=== PATIENT | female | born 1940 | race Caucasian/White ===

== ENCOUNTER → 2017-04-05 | Outpatient (CLI) | payer MEDICARE, BC ==
--- NOTE | 2017-04-05 16:04 | BD ---
EXAMINATION TYPE: MG DEXA axial skeleton. DATE OF EXAM: 04/05/2017 COMPARISON: 07.20.2002 CLINICAL HISTORY: Z78.0 POST MENOPAUSAL Height: 54.3 Weight: 147 FRAX RISK QUESTIONS: Alcohol (3 or more units per day): NO Family History (Parent hip fracture): NO Glucocorticoids (More than 3mos): NO (Ex: prednisone, prednisolone, methylprednisolone, dexamethasone, and hydrocortisone). History of Fracture in Adulthood: YES Secondary Osteoporosis: NO 1. Type 1 Diabetes: NO 2. Hyperthyroidism: NO 3. Menopause before 45: NO 4. Malnutrition: NO 5. Chronic liver disease: NO Rheumatoid Arthritis: NO Current Tobacco Use: NO RISK FACTORS HISTORY OF: LT SHOULDER BROKEN AT AGE 46...WITH SURGICAL REPAIR When: 46 YRS OLD BOTH FEET BROKEN IN HER 60'S Family History of Osteoporosis: NO Active: YES Diet low in dairy products/other sources of calcium: NO Postmenopausal woman: AT AGE 52 Take estrogen and/or progesterone medications: IN PAST ONLY FOR 2-3 YRS Lost more than 2 inches in height since high school: NO Hyperparathyroidism: NO Adrenal Insufficiency: NO MEDICATIONS: Prednisone or other steroids: CORTIZON INJECTIONS How Long: PRN....LAST WAS 4 WKS AGO Additional Medications: ALEVE, BP MEDS, VIT D,STATINS FOR CHOLESTEROL Additional History: ARTHRITIS EXAM MEASUREMENTS: Bone mineral densitometry was performed using the [employer] System. Bone mineral density as measured about the Lumbar spine is: ----- L1-L4(G/cm2): 1.040 T Score Values are as follows: ----- L1: -1.4 ----- L2: -2.3 ----- L3: -0.9 ----- L4: -0.4 ----- L1-L4: -1.2 Bone mineral density has: Increased 4.4%jalen study of: 07.20.2002 Bone mineral density about the R hip (g/cm2): 0.787 Bone mineral density about the L hip (g/cm2): 0.749 T Score values are as follows: -----R Neck: -2.1 -----L Neck: -2.4 -----R Total: -1.7 -----L Total: -2.1 Bone mineral density has: Decreased -7.4% study of: 07.20.2002 FRAX%'S: THERE IS A 22.7% CHANCE OF A MAJOR OSTEOPOROTIC FX AND A 6.5% CHANCE FOR A HIP FX....PRO BABILITY IN 10/YRS TIME IMPRESSION: Osteopenia (T Score between -2.5 and -1 as noted by T score values There is slightly increased risk of fracture and the patient may be considered for treatment. Re-Screen 2-5 years FOR BOTH OF HER HIPS AND LUMBAR SPINE Bone density is improved 4.4% within the lumbar spine from 07/20/2002. Bone density is diminished 7.4% within the bilateral hips from 2001 NOTE: T-SCORE=SD OF THE YOUNG ADULT MEAN.
== END | disposition home or self-care (01) ==
LOC: RADBDWWP 12:28
PROVIDERS: ATTEND Family Medicine
DX: M85.80 Other specified disorders of bone density and structure, unspecified site (principal); Z78.0 Asymptomatic menopausal state
CPT/HCPCS: 77080

== ENCOUNTER → 2020-03-29 | Outpatient (CLI) | payer MEDICARE, BC ==
--- NOTE | 2020-03-29 18:51 | BD ---
EXAMINATION TYPE: Axial Bone Density DATE OF EXAM: 03/29/2020 COMPARISON: NONE CLINICAL HISTORY: Height: 65 Weight: 144.6 FRAX RISK QUESTIONS: Alcohol (3 or more units per day): NO Family History (Parent hip fracture): no Glucocorticoids (More than 3mos): no (Ex: prednisone, prednisolone, methylprednisolone, dexamethasone, and hydrocortisone). History of Fracture in Adulthood: yes Secondary Osteoporosis: 1. Type 1 Diabetes: no 2. Hyperthyroidism: no 3. Menopause before 45: no 4. Malnutrition: no 5. Chronic liver disease: no Rheumatoid Arthritis: no Current Tobacco Use: no RISK FACTORS HISTORY OF: Family History of Osteoporosis: yes Active: yes Diet low in dairy products/other sources of calcium: no Postmenopausal woman: age 52 MEDICATIONS: vitamins, bp meds, cholesterol meds Additional History: EXAM MEASUREMENTS: Bone mineral densitometry was performed using the [employer] System. Bone mineral density as measured about the Lumbar spine is: ----- L1-L4(G/cm2): 1.002 T Score Values are as follows: ----- L2: -2.1 ----- L3: -1.8 ----- L4: -0.3 ----- L1-L4: -2.6 Bone mineral density has: decreased -2.6 % since study of: 04.05.2017 Bone mineral density about the R hip (g/cm2): 0.725 Bone mineral density about the L hip (g/cm2): 0.695 T Score values are as follows: -----R Neck: -2.3 -----L Neck: -2.5 -----R Total: -1.8 -----L Total: -2.0 Bone mineral density has: decreased -0.5 % since study of: 04.05.2017 IMPRESSION: Osteoporosis (T Score less than -2.5). There is increased fracture risk and therapy is usually indicated based on age. Re-Screen 1-2 years. NOTE: T-SCORE=SD OF THE YOUNG ADULT MEAN.
== END ==
LOC: RADBDWWP 09:53
PROVIDERS: ATTEND Family Medicine
DX: M81.0 Age-related osteoporosis without current pathological fracture (principal); Z78.0 Asymptomatic menopausal state
CPT/HCPCS: 77080

== ENCOUNTER 2020-12-17 09:17 | Emergency (ER) | payer MEDICARE, BC ==
--- NOTE | 2020-12-17 10:19 | ED ---
General Adult HPI - General Chief complaint: Shortness of Breath Stated complaint: Covid+, IRLANDA Source: patient, RN notes reviewed, old records reviewed Mode of arrival: ambulatory Limitations: no limitations - History of Present Illness Initial comments: This is a 80-year-old female who states she was diagnosed with COVID 2 weeks ago. Patient states since then she has a low-grade fever every day and has been feeling very tired today she states she has a little chest soreness and mild shortness of breath. Patient denies any abdominal pain patient denies nausea vomiting. Patient states she does have some diarrhea.. Patient denies headache patient denies numbness weakness. Patient did not get any monoclonal antibodies. Patient denies any leg swelling or calf tenderness. - Related Data Previous Rx's Medication Instructions Recorded Dexamethasone [Decadron] 6 mg PO DAILY #7 tablet 12/17/20 Allergies Allergy/AdvReac Type Severity Reaction Status Date / Time azithromycin Allergy Rash/Hives Verified 12/17/20 09:23 [From Zithromax Z-Scott] propoxyphene [From Darvon] Allergy Vomiting Verified 12/17/20 09:23 Review of Systems ROS Statement: Those systems with pertinent positive or pertinent negative responses have been documented in the HPI. ROS Other: All systems not noted in ROS Statement are negative. Past Medical History Past Medical History: Hypertension Past Surgical History: Orthopedic Surgery Past Psychological History: No Psychological Hx Reported Smoking Status: Never smoker Past Alcohol Use History: None Reported Past Drug Use History: None Reported General Exam - General Exam Comments Initial Comments: GENERAL: Patient is well-developed and well-nourished. Patient is nontoxic and well- hydrated and is in mild distress. ENT: Neck is soft and supple. No significant lymphadenopathy is noted. Oropharynx is clear. Moist mucous membranes. Neck has full range of motion without eliciting any pain. EYES: The sclera were anicteric and conjunctiva were pink and moist. Extraocular movements were intact and pupils were equal round and reactive to light. Eyelids were unremarkable. PULMONARY: Unlabored respirations. Good breath sounds bilaterally. No audible rales rhonchi or wheezing was noted. CARDIOVASCULAR: There is a regular rate and rhythm without any murmurs gallops or rubs. ABDOMEN: Soft and nontender with normal bowel sounds. SKIN: Skin is clear with no lesions or rashes and otherwise unremarkable. NEUROLOGIC: Patient is alert and oriented x3. Cranial nerves II through XII are grossly intact. Motor and sensory are also intact. Normal speech, volume and content. Symmetrical smile. MUSCULOSKELETAL: Normal extremities with adequate strength and full range of motion. LYMPHATICS: No significant lymphadenopathy is noted PSYCHIATRIC: Normal psychiatric evaluation. Limitations: no limitations Course Vital Signs 12/17/20 12/17/20 09:19 10:43 Temperature 97.9 F 99.2 F Pulse Rate 95 78 Respiratory 22 18 Rate Blood Pressure 139/81 130/75 O2 Sat by Pulse 93 L 95 Oximetry Medical Decision Making - Medical Decision Making EKG shows normal sinus rhythm at 82 bpm SD interval 148 QRS is 86 Q-T intervals 42 QTC is 446 per patient's EKG shows no ST segment elevation or depression. Chest x-ray shows opacification consistent with COVID pneumonia. - Lab Data Result diagrams: 12/17/20 10:51 12/17/20 10:51 Lab Results 12/17/20 12/17/20 12/17/20 Range/Units 10:51 10:51 10:51 WBC 6.7 (3.8-10.6) k/uL RBC 4.21 (3.80-5.40) m/uL Hgb 13.0 (11.4-16.0) gm/dL Hct 37.0 (34.0-46.0) % MCV 87.8 (80.0-100.0) fL MCH 31.0 (25.0-35.0) pg MCHC 35.3 (31.0-37.0) g/dL RDW 12.0 (11.5-15.5) % Plt Count 209 (150-450) k/uL MPV 7.0 Neutrophils % 76 % Lymphocytes % 15 % Monocytes % 7 % Eosinophils % 0 % Basophils % 0 % Neutrophils # 5.1 (1.3-7.7) k/uL Lymphocytes # 1.0 (1.0-4.8) k/uL Monocytes # 0.5 (0-1.0) k/uL Eosinophils # 0.0 (0-0.7) k/uL Basophils # 0.0 (0-0.2) k/uL PT 10.3 (9.0-12.0) sec INR 1.0 (<1.2) APTT 23.7 (22.0-30.0) sec Sodium 134 L (137-145) mmol/L Potassium 3.8 (3.5-5.1) mmol/L Chloride 103 (98-107) mmol/L Carbon Dioxide 21 L (22-30) mmol/L Anion Gap 10 mmol/L BUN 11 (7-17) mg/dL Creatinine 0.44 L (0.52-1.04) mg/dL Est GFR (CKD-EPI)AfAm >90 (>60 ml/min/1.73 sqM) Est GFR (CKD-EPI)NonAf >90 (>60 ml/min/1.73 sqM) Glucose 121 H (74-99) mg/dL Calcium 8.3 L (8.4-10.2) mg/dL Magnesium 1.9 (1.6-2.3) mg/dL Total Bilirubin 0.6 (0.2-1.3) mg/dL AST 34 (14-36) U/L ALT 16 (4-34) U/L Alkaline Phosphatase 75 (38-126) U/L Troponin I (0.000-0.034) ng/mL Total Protein 6.7 (6.3-8.2) g/dL Albumin 3.6 (3.5-5.0) g/dL 12/17/20 Range/Units 10:51 WBC (3.8-10.6) k/uL RBC (3.80-5.40) m/uL Hgb (11.4-16.0) gm/dL Hct (34.0-46.0) % MCV (80.0-100.0) fL MCH (25.0-35.0) pg MCHC (31.0-37.0) g/dL RDW (11.5-15.5) % Plt Count (150-450) k/uL MPV Neutrophils % % Lymphocytes % % Monocytes % % Eosinophils % % Basophils % % Neutrophils # (1.3-7.7) k/uL Lymphocytes # (1.0-4.8) k/uL Monocytes # (0-1.0) k/uL Eosinophils # (0-0.7) k/uL Basophils # (0-0.2) k/uL PT (9.0-12.0) sec INR (<1.2) APTT (22.0-30.0) sec Sodium (137-145) mmol/L Potassium (3.5-5.1) mmol/L Chloride (98-107) mmol/L Carbon Dioxide (22-30) mmol/L Anion Gap mmol/L BUN (7-17) mg/dL Creatinine (0.52-1.04) mg/dL Est GFR (CKD-EPI)AfAm (>60 ml/min/1.73 sqM) Est GFR (CKD-EPI)NonAf (>60 ml/min/1.73 sqM) Glucose (74-99) mg/dL Calcium (8.4-10.2) mg/dL Magnesium (1.6-2.3) mg/dL Total Bilirubin (0.2-1.3) mg/dL AST (14-36) U/L ALT (4-34) U/L Alkaline Phosphatase (38-126) U/L Troponin I <0.012 (0.000-0.034) ng/mL Total Protein (6.3-8.2) g/dL Albumin (3.5-5.0) g/dL Disposition Clinical Impression: Pneumonia due to COVID-19 virus Disposition: HOME SELF-CARE Instructions (If sedation given, give patient instructions): Coronavirus Disease 2019 (COVID-19) Prescriptions: Dexamethasone [Decadron] 6 mg PO DAILY #7 tablet Is patient prescribed a controlled substance at d/c from ED?: No Referrals: Ozzy Singer MD [Primary Care Provider] - 1-2 days Time of Disposition: 11:52
[2020-12-17 10:51] VITALS: RESP 18
--- NOTE | 2020-12-17 11:02 | XR ---
EXAMINATION TYPE: XR chest 2V DATE OF EXAM: 12/17/2020 COMPARISON: 10/06/2013 HISTORY: Wrist pain TECHNIQUE: Frontal and lateral views of the chest are obtained. FINDINGS: There is mild interstitial opacity bilaterally is not present on the prior study. There is no pleural effusion or pneumothorax. Heart is normal in size. The osseous structures soft tissues ar e unremarkable IMPRESSION: Mild interstitial opacity not seen on the prior study likely reflecting an acute process such as edema or pneumonic infiltrate. Short-term follow-up is recommended.
[2020-12-17 11:12] LABS: Basophils % (A) 0 %; Eosinophils % (A) 0 %; Lymphocytes % (A) 15 %; MCHC 35.3 g/dL (31.0-37.0); MCV 87.8 fL (80.0-100.0); Monocytes # (A) 0.5 k/uL (0-1.0); Monocytes % (A) 7 %; Neutrophils # (A) 5.1 k/uL (1.3-7.7); Neutrophils % (A) 76 %; Platelet Count 209 k/uL (150-450); RBC 4.21 m/uL (3.80-5.40); WBC 6.7 k/uL (3.8-10.6)
[2020-12-17 11:23] LABS: ALT 16 U/L (4-34); AST 34 U/L (14-36); African American GFR (CKD) >90 (>60 ml/min/1.73 sqM); Albumin 3.6 g/dL (3.5-5.0); Alkaline Phosphatase 75 U/L (38-126); Anion Gap 10 mmol/L; Blood Urea Nitrogen 11 mg/dL (7-17); Calcium 8.3 mg/dL (8.4-10.2); Carbon Dioxide 21 mmol/L (22-30); Chloride 103 mmol/L (98-107); Glucose 121 mg/dL (74-99); Magnesium 1.9 mg/dL (1.6-2.3); Non-African American GFR(CKD) >90 (>60 ml/min/1.73 sqM); Potassium 3.8 mmol/L (3.5-5.1); Sodium 134 mmol/L (137-145); Total Bilirubin 0.6 mg/dL (0.2-1.3); Total Protein 6.7 g/dL (6.3-8.2)
[2020-12-17 11:28] LABS: Partial Thromboplastin Time 23.7 sec (22.0-30.0); Prothrombin Time 10.3 sec (9.0-12.0)
[2020-12-17] MEDS ORDERED: DEXAMETHASONE SOD PHOSPHATE 10 MG/ML 1 ML VIAL IV STA (11:53)
[2020-12-17 12:08] VITALS: BP 123/81; PULSE 74; TEMP 99.5
== END 2020-12-17 12:16 | disposition home or self-care (01) ==
LOC: EC 09:17
DX: U07.1 COVID-19 (principal); J12.82 Pneumonia due to coronavirus disease 2019; I10 Essential (primary) hypertension
CPT/HCPCS: 36415; 93005; 80053; 83735; 84484; 85025; 85610; 85730; 71046; 99285; 96374; J1100

== ENCOUNTER 2020-12-20 08:20 | Inpatient (IN) | payer MEDICARE, BC ==
[2020-12-20] MEDS ORDERED: DEXAMETHASONE SOD PHOSPHATE 10 MG/ML 1 ML VIAL IV STA (09:13)
--- NOTE | 2020-12-20 09:13 | ED ---
General Adult HPI - General Chief complaint: Shortness of Breath Stated complaint: Revisit - Covid+, IRLANDA Time Seen by Provider: 12/20/20 08:33 Source: patient Mode of arrival: ambulatory Limitations: no limitations - History of Present Illness Initial comments: Dictation was produced using [employer] dictation software. please excuse any grammatical, word or spelling errors. This patient was cared for during a federal and state declared state of ergency secondary to Covid 19 Chief Complaint: 80-year-old feel presents with shortness of breath. Patient has been symptomatic of covid 19 one week ago History of Present Illness: Patient is 80-year-old female she is relatively healthy. She has past medical history of hypertension. She is relatively self- sufficient. She presents to the emergency department for worsening dyspnea. Patient tested positive for Covid 19 7 days ago. Patient states she's been symptomatic for roughly that amount of time as well. Patient does not know how she contracted the disease. States that several of her family members are positive. Patient states that she feels okay at rest but becomes very dyspneic whenever she ambulates. The ROS documented in this emergency department record has been reviewed and confirmed by me. Those systems with pertinent positive or negative responses have been documented in the HPI. All other systems are other negative and/or noncontributory. PHYSICAL EXAM: General Impression: Alert and oriented x3, not in acute distress HEENT: Normocephalic atraumatic, extra-ocular movements intact, pupils equal and reactive to light bilaterally, mucous membranes moist. Cardiovascular: Heart regular rate and rhythm Chest: Able to complete full sentences, no retractions, no tachypnea Abdomen: abdomen soft, non-tender, non-distended, no organomegaly Musculoskeletal: Pulses present and equal in all extremities, no peripheral edema Motor: no focal deficits noted Neurological: CN II-XII grossly intact, no focal motor or sensory deficits noted Skin: Intact with no visualized rashes Psych: Normal affect and mood ED course: 80-year-old female presents to the emergency department for worsening dyspnea. She's been Covid positive for 7 days and been symptomatic for 1 week. Upon arrival shows 91% on room air at rest. Temperature of 97.4. Amylase her pulse ox is 8485%. Patient placed back in the room and put on 2 L nasal cannula with improvement of oxygenation to 90%. Given Decadron. Laboratory evaluation obtained. Leukocytosis of 15.5. D-dimer is 11.31. Patient does have a mild Acidosis with bicarb of 18 and anion gap of 13. Rest of labs unremarkable. Chest x-ray shows stable bilateral patchy infiltrates. Given elevated d-dimer CT angios the chest was ordered showing no evidence of pulmonary embolism at this time. Case is discussed with Dr. Singer's nurse practitioner, Boogie Lujan who is willing to accept patients care. No pulmonology will be consulted. EKG interpretation: Ventricular rate 63, normal sinus rhythm, SC interval 152, Q S 100, QTC 435. No SC prolongation, no QTC prolongation, no ST or T-wave changes noted. Overall, this EKG is unremarkable - Related Data Home Medications Medication Instructions Recorded Confirmed Aspirin EC [Ecotrin Low Dose] 81 mg PO DAILY 12/20/20 12/20/20 Atorvastatin Calcium [Lipitor] 20 mg PO HS 12/20/20 12/20/20 Cholecalciferol [Vitamin D3 (25 50 mcg PO DAILY@1200 12/20/20 12/20/20 Mcg = 1000 Iu)] Metoprolol Tartrate [Lopressor] 25 mg PO DAILY 12/20/20 12/20/20 amLODIPine BESYLATE/BENAZEPRIL 1 cap PO DAILY 12/20/20 12/20/20 [Lotrel 5-20 MG] Previous Rx's Medication Instructions Recorded Dexamethasone [Decadron] 6 mg PO DAILY #7 tablet 12/17/20 Allergies Allergy/AdvReac Type Severity Reaction Status Date / Time azithromycin Allergy Rash/Hives Verified 12/20/20 10:30 [From Zithromax Z-Scott] propoxyphene [From Darvon] AdvReac Nausea & Verified 12/20/20 10:30 Vomiting & Diarrhea Review of Systems ROS Statement: Those systems with pertinent positive or pertinent negative responses have been documented in the HPI. ROS Other: All systems not noted in ROS Statement are negative. Past Medical History Past Medical History: Hypertension Past Surgical History: Orthopedic Surgery Past Psychological History: No Psychological Hx Reported Smoking Status: Never smoker Past Alcohol Use History: None Reported Past Drug Use History: None Reported General Exam Limitations: no limitations Course Vital Signs 12/20/20 12/20/20 12/20/20 08:24 08:28 09:01 Temperature 97.4 F L Pulse Rate 80 57 L Respiratory 18 20 Rate Blood Pressure 127/74 129/76 O2 Sat by Pulse 90 L 85 L 91 L Oximetry Medical Decision Making - Lab Data Result diagrams: 12/20/20 08:50 12/20/20 08:50 Lab Results 12/20/20 12/20/20 12/20/20 Range/Units 08:50 08:50 08:50 WBC 15.5 H (3.8-10.6) k/uL RBC 4.13 (3.80-5.40) m/uL Hgb 12.6 (11.4-16.0) gm/dL Hct 35.9 (34.0-46.0) % MCV 87.1 (80.0-100.0) fL MCH 30.6 (25.0-35.0) pg MCHC 35.1 (31.0-37.0) g/dL RDW 11.9 (11.5-15.5) % Plt Count 395 (150-450) k/uL MPV 6.7 Neutrophils % 87 % Lymphocytes % 5 % Monocytes % 7 % Eosinophils % 0 % Basophils % 0 % Neutrophils # 13.5 H (1.3-7.7) k/uL Lymphocytes # 0.8 L (1.0-4.8) k/uL Monocytes # 1.1 H (0-1.0) k/uL Eosinophils # 0.0 (0-0.7) k/uL Basophils # 0.0 (0-0.2) k/uL D-Dimer 11.31 H (<0.60) mg/L FEU Sodium 137 (137-145) mmol/L Potassium 3.2 L (3.5-5.1) mmol/L Chloride 106 (98-107) mmol/L Carbon Dioxide 18 L (22-30) mmol/L Anion Gap 13 mmol/L BUN 21 H (7-17) mg/dL Creatinine 0.53 (0.52-1.04) mg/dL Est GFR (CKD-EPI)AfAm >90 (>60 ml/min/1.73 sqM) Est GFR (CKD-EPI)NonAf >90 (>60 ml/min/1.73 sqM) Glucose 143 H (74-99) mg/dL Calcium 8.8 (8.4-10.2) mg/dL Disposition Clinical Impression: COVID-19 Disposition: ADMITTED IP TO THIS HOSP Condition: Serious Referrals: Ozzy Singer MD [Primary Care Provider] - 1-2 days Decision Time: 10:57
[2020-12-20 09:20] LABS: Basophils % (A) 0 %; Eosinophils % (A) 0 %; HCT 35.9 % (34.0-46.0); HGB 12.6 gm/dL (11.4-16.0); Lymphocytes # (A) 0.8 k/uL (1.0-4.8); Lymphocytes % (A) 5 %; MCH 30.6 pg (25.0-35.0); MCHC 35.1 g/dL (31.0-37.0); MCV 87.1 fL (80.0-100.0); Mean Platelet Volume 6.7; Monocytes # (A) 1.1 k/uL (0-1.0); Monocytes % (A) 7 %; Neutrophils # (A) 13.5 k/uL (1.3-7.7); Neutrophils % (A) 87 %; Platelet Count 395 k/uL (150-450); RBC 4.13 m/uL (3.80-5.40); RDW 11.9 % (11.5-15.5); WBC 15.5 k/uL (3.8-10.6)
--- NOTE | 2020-12-20 09:40 | XR ---
EXAMINATION TYPE: XR chest 1V portable DATE OF EXAM: 12/20/2020 COMPARISON: 12/17/2020 INDICATION: Short of breath with exertion TECHNIQUE: Single frontal view of the chest is obtained. FINDINGS: The heart size is normal. The pulmonary vasculature is normal. Patchy bibasal infiltrates present. Findings are similar to comparison IMPRESSION: 1. Stable bilateral patchy infiltrates
[2020-12-20 09:47] LABS: African American GFR (CKD) >90 (>60 ml/min/1.73 sqM); Anion Gap 13 mmol/L; Blood Urea Nitrogen 21 mg/dL (7-17); Calcium 8.8 mg/dL (8.4-10.2); Carbon Dioxide 18 mmol/L (22-30); Chloride 106 mmol/L (98-107); Glucose 143 mg/dL (74-99); Non-African American GFR(CKD) >90 (>60 ml/min/1.73 sqM); Potassium 3.2 mmol/L (3.5-5.1); Sodium 137 mmol/L (137-145)
[2020-12-20] MEDS ORDERED: ACETAMINOPHEN TAB 325 MG TAB PO PRN (10:04)
[2020-12-20] MEDS ORDERED: ENOXAPARIN 60 MG/0.6 ML SYRINGE SQ ONE (10:45)
--- NOTE | 2020-12-20 10:50 | CT ---
EXAMINATION TYPE: CT angio chest DATE OF EXAM: 12/20/2020 COMPARISON: None HISTORY: Elevated d dimer, covid postitive CT DLP: 257.5 mGycm CONTRAST: CT chest with contrast and 3D reconstruction with MIP imaging is performed with IV Contrast, patient injected with 60 mL of Isovue 300. Contrast-enhanced CT of the chest was performed through the course of the pulmonary arteries with zoila g and mediastinal window settings submitted. 3D reconstruction with MIP imaging was also performed. PULMONARY ARTERIES: The pulmonary arteries and their major tributaries are patent. I do not see elidia dence for sizable filling defect to suggest pulmonary embolic process. LUNGS: Scattered groundglass infiltrates are noted throughout both lung ni. No evidence for atele ctasis. No pulmonary nodule or mass is detected. No pleural effusion. MEDIASTINUM: Thoracic aorta is of normal caliber,however, evaluation is limited given timing of the contrast bolus. If there is concern for thoracic aortic pathology consider KOFI. Correlate clinicall y . The heart is not enlarged. No evidence for mediastinal mass. No mediastinal lymph nodes greater than 1cm. HILAR STRUCTURES: No evidence for mass. No hilar lymph nodes greater than 1 cm. UPPER ABDOMEN: No significant abnormality is seen. IMPRESSION: 1. No evidence for Pulmonary embolism at this time.
[2020-12-20] MEDS ORDERED: NALOXONE 0.4 MG/ML 1 ML VIAL IV PRN (10:57)
[2020-12-20] MEDS ORDERED: REMDESIVIR 200 MG in SODIUM CHLORIDE 0.9% 250 ML IVPB ONE ×2 (11:00→20:30)
[2020-12-20] MEDS: ZINC SULFATE 220 MG CAP PO SCH (11:57)
[2020-12-20] MEDS: ASCORBIC ACID 500 MG TAB PO SCH (11:57)
[2020-12-20] MEDS: CHOLECALCIFEROL 25 MCG (1000 IU) TABLET PO SCH (11:57)
[2020-12-20] MEDS: SODIUM CHLORIDE 0.9% 1,000 ML IV SCH (12:00)
[2020-12-20 12:34] LABS: Prothrombin Time 10.4 sec (9.0-12.0)
[2020-12-20 12:42] LABS: Partial Thromboplastin Time 20.2 sec (22.0-30.0)
[2020-12-20 15:31] LABS: ABG Base Excess -2.3 mmol/L; ABG HCO3 21 mmol/L (21-25); ABG Oxygen Saturation 96.9 % (94-97); ABG PCO2 29 mmHg (35-45); ABG PH 7.47 (7.35-7.45); ABG PO2 84 mmHg (83-108); ABG TCO2 22 mmol/L (19-24); Allen Test Performed? Yes
--- NOTE | 2020-12-20 19:09 | P.HPIM ---
History of Present Illness H&P Date: 12/20/20 Chief Complaint: Acute hypoxic respiratory failure secondary to coven 19 pne benjamin 80-year-old female was admitted to the hospital for acute hypoxic respiratory failure secondary to coven 19 pneumonia. she has significant medical history of hypertension. Extensive diagnostic workup was performed in the emergency department revealing covid 19 pneumonia with elevated inflammatory markers, CT of the chest was performed no acute pulmonary embolus noted, appears to have a multifocal pneumonia. Due to the patient's duration of onset of symptoms of 7 days patient will receive first dose of remdesivir and IV Decadron, and anticoagulation therapy of Lovenox upon. evaluation of the patient this a.m. patient is resting comfortably in bed, speaking full sentences, p atient endorses shortness of breath with exertion and generalized fatigue. Review of Systems Constitutional: Reports fatigue, Reports weakness Eyes: bilateral as per HPI Cardiovascular: Reports dyspnea on exertion, Reports shortness of breath Respiratory: Reports dyspnea Musculoskeletal: Reports muscle weakness Neurological: Reports weakness Past Medical History Past Medical History: Hypertension Past Surgical History: Orthopedic Surgery Past Psychological History: No Psychological Hx Reported Smoking Status: Never smoker Past Alcohol Use History: None Reported Past Drug Use History: None Reported Medications and Allergies Home Medications and Allergies Comment(s): Medications and ALLERGIES reviewed Home Medications Medication Instructions Recorded Confirmed Type Dexamethasone [Decadron] 6 mg PO DAILY #7 tablet 12/17/20 12/20/20 Rx Aspirin EC [Ecotrin Low Dose] 81 mg PO DAILY 12/20/20 12/20/20 History Atorvastatin Calcium [Lipitor] 20 mg PO HS 12/20/20 12/20/20 History Cholecalciferol [Vitamin D3 (25 50 mcg PO DAILY@1200 12/20/20 12/20/20 History Mcg = 1000 Iu)] Metoprolol Tartrate [Lopressor] 25 mg PO DAILY 12/20/20 12/20/20 History amLODIPine BESYLATE/BENAZEPRIL 1 cap PO DAILY 12/20/20 12/20/20 History [Lotrel 5-20 MG] Allergies Allergy/AdvReac Type Severity Reaction Status Date / Time azithromycin Allergy Rash/Hives Verified 12/20/20 10:30 [From Zithromax Z-Scott] propoxyphene [From Darvon] AdvReac Nausea & Verified 12/20/20 10:30 Vomiting & Diarrhea Physical Exam Vitals: Vital Signs Temp Pulse Resp BP Pulse Ox 12/20/20 18:43 98.4 F 64 18 138/83 96 12/20/20 14:09 66 18 95 12/20/20 11:56 98.2 F 66 18 129/69 97 12/20/20 09:01 57 L 20 129/76 91 L 12/20/20 08:28 85 L 12/20/20 08:24 97.4 F L 80 18 127/74 90 L Intake and Output 12/20/20 12/20/20 12/20/20 06:59 14:59 22:59 Other: Weight 64.864 kg - Constitutional General appearance: mild distress - EENT Eyes: EOMI, PERRLA ENT: normal oropharynx - Neck Carotids: bilateral: upstroke normal Thyroid: bilateral: normal size - Respiratory Respiratory: bilateral: diminished (Anterior lung ni), rhonchi (coarse crackles to posterior bilateral bases) - Cardiovascular Normal sinus rhythm Heart rate: 78 Rhythm: regular Heart sounds: normal: S1, S2 radial pulse Peripheral Pulses: bilateral: Normal dorsalis pedis Peripheral Pulses: bilateral: Normal - Gastrointestinal General gastrointestinal: normal bowel sounds - Neurologic Neurologic: CNII-XII intact - Musculoskeletal Musculoskeletal: generalized weakness - Psychiatric Psychiatric: A&O x's 3, appropriate affect, intact judgment & insight Results CBC & Chem 7: 12/20/20 08:50 12/20/20 08:50 Labs: Abnormal Lab Results - Last 24 Hours (Table) 12/20/20 12/20/20 12/20/20 Range/Units 08:50 08:50 08:50 WBC 15.5 H (3.8-10.6) k/uL Neutrophils # 13.5 H (1.3-7.7) k/uL Lymphocytes # 0.8 L (1.0-4.8) k/uL Monocytes # 1.1 H (0-1.0) k/uL APTT (22.0-30.0) sec D-Dimer 11.31 H (<0.60) mg/L FEU ABG pH (7.35-7.45) ABG pCO2 (35-45) mmHg Potassium 3.2 L (3.5-5.1) mmol/L Carbon Dioxide 18 L (22-30) mmol/L BUN 21 H (7-17) mg/dL Glucose 143 H (74-99) mg/dL Lactate Dehydrogenase (313-618) U/L 12/20/20 12/20/20 12/20/20 Range/Units 08:50 08:50 15:29 WBC (3.8-10.6) k/uL Neutrophils # (1.3-7.7) k/uL Lymphocytes # (1.0-4.8) k/uL Monocytes # (0-1.0) k/uL APTT 20.2 L (22.0-30.0) sec D-Dimer (<0.60) mg/L FEU ABG pH 7.47 H (7.35-7.45) ABG pCO2 29 L (35-45) mmHg Potassium (3.5-5.1) mmol/L Carbon Dioxide (22-30) mmol/L BUN (7-17) mg/dL Glucose (74-99) mg/dL Lactate Dehydrogenase 686 H (313-618) U/L Chest x-ray: report reviewed Thrombosis Risk Factor Assmnt - Choose All That Apply Each Factor Represents 1 point: Obesity (BMI >25) Each Risk Factor Represents 3 Points: Age 75 years or older Thrombosis Risk Factor Assessment Total Risk Factor Score: 4 Thrombosis Risk Factor Assessment Level: Moderate Risk Assessment and Plan Assessment: Acute hypoxic respiratory failure secondary to coven 19 pneumonia Hypertension Hyperlipidemia Full code Plan: Acute hypoxic respiratory failure second to the 19 pneumoniaconsultation with pulmonary critical care for treatment plan and recommendations Hypertensioncontinue home medications Hyperlipidemia continue home medications Continue infusions of remdesivir the and IV push of Decadron Continue home medications Further recommendations to come based on patient's clinical condition Time with Patient: Greater than 30
--- NOTE | 2020-12-20 19:32 | P.CNPUL ---
History of Present Illness Consult date: 12/20/20 Reason for consult: dyspnea, cough, hypoxemia, pneumonia Chief complaint: Progressive cough along with shortness of breath History of present illness: This is a pleasant 80-year-old nonsmoker female came into the hospital with increasing shortness of breath cough patient come into contact with covert 19 pneumonia family members, progressive shortness of breath especially on ambulation decided to come into the hospital patient oxygen saturation is 84-85% at room air improved to low 90s with supplemental oxygen, chest x-ray significant for bilateral patchy infiltrate, CT no pulmonary embolism is seen by d-dimer elevated consistent with ongoing inflammatory response, weighted white count likely related to steroids, Review of Systems All systems: negative Past Medical History Past Medical History: Hypertension Past Surgical History: Orthopedic Surgery Past Psychological History: No Psychological Hx Reported Smoking Status: Never smoker Past Alcohol Use History: None Reported Past Drug Use History: None Reported Medications and Allergies Home Medications Medication Instructions Recorded Confirmed Type Dexamethasone [Decadron] 6 mg PO DAILY #7 tablet 12/17/20 12/20/20 Rx Aspirin EC [Ecotrin Low Dose] 81 mg PO DAILY 12/20/20 12/20/20 History Atorvastatin Calcium [Lipitor] 20 mg PO HS 12/20/20 12/20/20 History Cholecalciferol [Vitamin D3 (25 50 mcg PO DAILY@1200 12/20/20 12/20/20 History Mcg = 1000 Iu)] Metoprolol Tartrate [Lopressor] 25 mg PO DAILY 12/20/20 12/20/20 History amLODIPine BESYLATE/BENAZEPRIL 1 cap PO DAILY 12/20/20 12/20/20 History [Lotrel 5-20 MG] Allergies Allergy/AdvReac Type Severity Reaction Status Date / Time azithromycin Allergy Rash/Hives Verified 12/20/20 10:30 [From Zithromax Z-Scott] propoxyphene [From Darvon] AdvReac Nausea & Verified 12/20/20 10:30 Vomiting & Diarrhea Physical Exam Vitals: Vital Signs Temp Pulse Resp BP Pulse Ox 12/20/20 18:43 98.4 F 64 18 138/83 96 12/20/20 14:09 66 18 95 12/20/20 11:56 98.2 F 66 18 129/69 97 12/20/20 09:01 57 L 20 129/76 91 L 12/20/20 08:28 85 L 12/20/20 08:24 97.4 F L 80 18 127/74 90 L Intake and Output 12/20/20 12/20/20 12/20/20 06:59 14:59 22:59 Other: Weight 64.864 kg - Constitutional General appearance: average body habitus, cooperative, disheveled, mild distress - EENT Eyes: EOMI, PERRLA Ears: bilateral: normal - Neck Neck: normal ROM Carotids: bilateral: upstroke normal Thyroid: bilateral: normal size - Respiratory Respiratory: bilateral: diminished - Cardiovascular Rhythm: regular Heart sounds: normal: S1, S2 - Gastrointestinal General gastrointestinal: normal bowel sounds - Neurologic Neurologic: CNII-XII intact - Musculoskeletal Musculoskeletal: gait normal, generalized weakness, strength equal bilaterally - Psychiatric Psychiatric: A&O x's 3, appropriate affect, intact judgment & insight Results - Laboratory Findings CBC and BMP: 12/20/20 08:50 12/20/20 08:50 ABG ABG pH 7.47 (7.35-7.45) H 12/20/20 15:29 ABG pCO2 29 mmHg (35-45) L 12/20/20 15:29 ABG pO2 84 mmHg (83-108) 12/20/20 15:29 ABG O2 Saturation 96.9 % (94-97) 12/20/20 15:29 PT/INR, D-dimer PT 10.4 sec (9.0-12.0) 12/20/20 08:50 INR 1.0 (<1.2) 12/20/20 08:50 D-Dimer 11.31 mg/L FEU (<0.60) H 12/20/20 08:50 Abnormal lab findings: Abnormal Labs 12/20/20 12/20/20 12/20/20 08:50 08:50 08:50 WBC 15.5 H Neutrophils # 13.5 H Lymphocytes # 0.8 L Monocytes # 1.1 H APTT D-Dimer 11.31 H ABG pH ABG pCO2 Potassium 3.2 L Carbon Dioxide 18 L BUN 21 H Glucose 143 H Lactate Dehydrogenase 12/20/20 12/20/20 12/20/20 08:50 08:50 15:29 WBC Neutrophils # Lymphocytes # Monocytes # APTT 20.2 L D-Dimer ABG pH 7.47 H ABG pCO2 29 L Potassium Carbon Dioxide BUN Glucose Lactate Dehydrogenase 686 H - Diagnostic Findings Chest x-ray: report reviewed, image reviewed (Pending as noted above) CT scan - chest: report reviewed, image reviewed (Finding as noted above) Assessment and Plan Assessment: Acute hypoxic restrictive failure Covid 19 pneumonia Hypertension Dyslipidemia Plan: IV REMDESIVIr Steroids Lovenox Supplemental oxygen Deep breathing exercises incentive spirometry Prone positioning Supplements Monitor observe in telemetry parameters Other recommendations pending plan of care as per clinical response of the patient Time with Patient: Greater than 30
[2020-12-20] MEDS: ENOXAPARIN 60 MG/0.6 ML SYRINGE SQ SCH (23:55)
[2020-12-21 05:11] LABS: Basophils % (A) 0 %; Eosinophils % (A) 0 %; HCT 34.3 % (34.0-46.0); HGB 12.3 gm/dL (11.4-16.0); Lymphocytes # (A) 1.6 k/uL (1.0-4.8); Lymphocytes % (A) 17 %; MCH 31.3 pg (25.0-35.0); MCHC 35.8 g/dL (31.0-37.0); MCV 87.5 fL (80.0-100.0); Mean Platelet Volume 6.7; Monocytes # (A) 0.9 k/uL (0-1.0); Monocytes % (A) 9 %; Neutrophils # (A) 6.9 k/uL (1.3-7.7); Neutrophils % (A) 72 %; Platelet Count 362 k/uL (150-450); RBC 3.92 m/uL (3.80-5.40); WBC 9.6 k/uL (3.8-10.6)
[2020-12-21 05:36] LABS: ALT 34 U/L (4-34); AST 26 U/L (14-36); African American GFR (CKD) >90 (>60 ml/min/1.73 sqM); Albumin 3.3 g/dL (3.5-5.0); Albumin/Globulin Ratio 1.1; Alkaline Phosphatase 75 U/L (38-126); Anion Gap 9 mmol/L; Blood Urea Nitrogen 17 mg/dL (7-17); Calcium 8.5 mg/dL (8.4-10.2); Carbon Dioxide 23 mmol/L (22-30); Chloride 104 mmol/L (98-107); Globulin 2.9 g/dL; Glucose 101 mg/dL (74-99); Magnesium 2.2 mg/dL (1.6-2.3); Non-African American GFR(CKD) 88 (>60 ml/min/1.73 sqM); Potassium 3.7 mmol/L (3.5-5.1); Sodium 136 mmol/L (137-145); Total Bilirubin 0.6 mg/dL (0.2-1.3); Total Protein 6.2 g/dL (6.3-8.2)
[2020-12-21] MEDS: LACTATED RINGERS 1,000 ML IV SCH (08:27)
--- NOTE | 2020-12-21 09:10 | P.PN ---
Subjective Progress Note Date: 12/21/20 Principal diagnosis: Covid 19 pneumonia 80-year-old female was admitted to the hospital for acute hypoxic respiratory failure secondary to covid 19 pneumonia. she has significant medical history of hypertension. Extensive diagnostic workup was performed in the emergency department revealing covid 19 pneumonia with elevated inflammatory markers, CT of the chest was performed no acute pulmonary embolus noted, appears to have a multifocal pneumonia. Due to the patient's duration of onset of symptoms of 7 days patient will receive first dose of remdesivir and IV D ecadron, and anticoagulation therapy of Lovenox. upon evaluation of the patient this a.m. patient is resting comfortably in bed, speaking full sentences, patient endorses shortness of breath with exertion and generalized fatigue. December 21, 2020 Evaluated 80-year-old female this a.m., patient resting comfortably in bed. Patient continues to receive Covid 19 cocktail, and responding well to therapy at this time. Patient denies fever, chills, shortness of breath at rest, chest pain, palpitations, abdominal pain, nausea, vomiting, or diarrhea. Patient continues to endorse exertional shortness of breath and generalized fatigue. Diagnostic testing reviewed Objective - Vital Signs Vital signs: Vital Signs Temp 98.2 F 12/21/20 05:34 Pulse 59 L 12/21/20 08:30 Resp 18 12/21/20 08:30 BP 134/74 12/21/20 08:30 Pulse Ox 94 L 12/21/20 08:30 Intake & Output 12/20/20 12/21/20 12/21/20 18:59 06:59 18:59 Weight 64.864 kg Other: Voiding Method Toilet - Constitutional General appearance: Present: cooperative - EENT Eyes: Present: EOMI, PERRLA ENT: Present: normal oropharynx Ears: bilateral: normal - Neck Carotids: bilateral: upstroke normal Thyroid: bilateral: normal size - Respiratory Respiratory: bilateral: CTA (Anterior lung ni), diminished (Posterior lung ni) - Cardiovascular Details: Normal sinus rhythm Heart rate: 67 Rhythm: regular Heart sounds: normal: S1, S2 - Peripheral pulses radial pulse Peripheral Pulses: bilateral: Normal dorsalis pedis Peripheral Pulses: bilateral: Normal - Gastrointestinal General gastrointestinal: Present: normal bowel sounds - Integumentary Integumentary: Present: decreased turgor - Neurologic Neurologic: Present: CNII-XII intact - Musculoskeletal Musculoskeletal: Present: generalized weakness - Psychiatric Psychiatric: Present: A&O x's 3, appropriate affect, intact judgment & insight - Allied health notes Allied health notes reviewed: nursing - Labs CBC & Chem 7: 12/21/20 04:40 12/21/20 04:40 Labs: Abnormal Lab Results - Last 24 Hours (Table) 12/20/20 12/20/20 12/20/20 Range/Units 08:50 08:50 08:50 WBC 15.5 H (3.8-10.6) k/uL Neutrophils # 13.5 H (1.3-7.7) k/uL Lymphocytes # 0.8 L (1.0-4.8) k/uL Monocytes # 1.1 H (0-1.0) k/uL APTT (22.0-30.0) sec D-Dimer 11.31 H (<0.60) mg/L FEU ABG pH (7.35-7.45) ABG pCO2 (35-45) mmHg Sodium (137-145) mmol/L Potassium 3.2 L (3.5-5.1) mmol/L Carbon Dioxide 18 L (22-30) mmol/L BUN 21 H (7-17) mg/dL Glucose 143 H (74-99) mg/dL Ferritin (10.0-291.0) ng/mL Lactate Dehydrogenase (313-618) U/L Total Protein (6.3-8.2) g/dL Albumin (3.5-5.0) g/dL 12/20/20 12/20/20 12/20/20 Range/Units 08:50 08:50 15:29 WBC (3.8-10.6) k/uL Neutrophils # (1.3-7.7) k/uL Lymphocytes # (1.0-4.8) k/uL Monocytes # (0-1.0) k/uL APTT 20.2 L (22.0-30.0) sec D-Dimer (<0.60) mg/L FEU ABG pH 7.47 H (7.35-7.45) ABG pCO2 29 L (35-45) mmHg Sodium (137-145) mmol/L Potassium (3.5-5.1) mmol/L Carbon Dioxide (22-30) mmol/L BUN (7-17) mg/dL Glucose (74-99) mg/dL Ferritin 494.0 H (10.0-291.0) ng/mL Lactate Dehydrogenase 686 H (313-618) U/L Total Protein (6.3-8.2) g/dL Albumin (3.5-5.0) g/dL 12/21/20 Range/Units 04:40 WBC (3.8-10.6) k/uL Neutrophils # (1.3-7.7) k/uL Lymphocytes # (1.0-4.8) k/uL Monocytes # (0-1.0) k/uL APTT (22.0-30.0) sec D-Dimer (<0.60) mg/L FEU ABG pH (7.35-7.45) ABG pCO2 (35-45) mmHg Sodium 136 L (137-145) mmol/L Potassium (3.5-5.1) mmol/L Carbon Dioxide (22-30) mmol/L BUN (7-17) mg/dL Glucose 101 H (74-99) mg/dL Ferritin (10.0-291.0) ng/mL Lactate Dehydrogenase (313-618) U/L Total Protein 6.2 L (6.3-8.2) g/dL Albumin 3.3 L (3.5-5.0) g/dL Assessment and Plan Assessment: Acute hypoxic respiratory failure secondary to coven 19 pneumonia Hypertension Hyperlipidemia Full code Plan: Acute hypoxic respiratory failure second to the 19 pneumoniaconsultation with pulmonary critical care for treatment plan and recommendations Hypertensioncontinue home medications Hyperlipidemia continue home medications Continue infusions of remdesivir the and IV push of Decadron Continue home medications Further recommendations to come based on patient's clinical condition Time with Patient: Greater than 30
[2020-12-21] MEDS: CHOLECALCIFEROL 25 MCG (1000 IU) TABLET PO SCH (09:47)
[2020-12-21] MEDS: ZINC SULFATE 220 MG CAP PO SCH (09:47)
[2020-12-21] MEDS: ASCORBIC ACID 500 MG TAB PO SCH (09:47)
[2020-12-21] MEDS: DEXAMETHASONE SOD PHOSPHATE 10 MG/ML 1 ML VIAL IV SCH (09:47)
[2020-12-21] MEDS: ENOXAPARIN 60 MG/0.6 ML SYRINGE SQ SCH ×2 (10:01→21:35)
[2020-12-21 12:05] LABS: Ferritin 417.3 ng/mL (10.0-291.0)
[2020-12-21] MEDS: SODIUM CHLORIDE 0.9% 1,000 ML IV SCH (14:29)
[2020-12-21] MEDS: REMDESIVIR 100 MG in SODIUM CHLORIDE 0.9% 250 ML IVPB SCH (15:20)
--- NOTE | 2020-12-21 16:49 | P.PN ---
Subjective Progress Note Date: 12/21/20 Principal diagnosis: Acute hypoxic restrictive failure Covid 19 pneumonia Hypertension Dyslipidemia 12/21/2020, patient is on 2 L nasal cannula breathing comfortably denies any chest pain patient will get second dose of IV REMdesivir, white cell count is down, inflammatory parameters up including high levels of ferritin C-reactive protein and LDH, pro calcitonin is normal, This is a pleasant 80-year-old nonsmoker female came into the hospital with increasing shortness of breath cough patient come into contact with covert 19 pneumonia family members, progressive shortness of breath especially on ambulation decided to come into the hospital patient oxygen saturation is 84-85% at room air improved to low 90s with supplemental oxygen, chest x-ray significant for bilateral patchy infiltrate, CT no pulmonary embolism is seen by d-dimer elevated consistent with ongoing inflammatory response, weighted white count likely related to steroids, Objective - Vital Signs Vital signs: Vital Signs Temp 98.4 F 12/21/20 16:00 Pulse 64 12/21/20 16:00 Resp 18 12/21/20 16:00 BP 132/69 12/21/20 16:00 Pulse Ox 98 12/21/20 16:00 Intake & Output 12/20/20 12/21/20 12/21/20 18:59 06:59 18:59 Weight 64.864 kg 64.864 kg Other: Voiding Method Toilet - Exam - Constitutional General appearance: average body habitus, cooperative, disheveled, mild distress - EENT Eyes: EOMI, PERRLA Ears: bilateral: normal - Neck Neck: normal ROM Carotids: bilateral: upstroke normal Thyroid: bilateral: normal size - Respiratory Respiratory: bilateral: diminished - Cardiovascular Rhythm: regular Heart sounds: normal: S1, S2 - Gastrointestinal General gastrointestinal: normal bowel sounds - Neurologic Neurologic: CNII-XII intact - Musculoskeletal Musculoskeletal: gait normal, generalized weakness, strength equal bilaterally - Psychiatric Psychiatric: A&O x's 3, appropriate affect, intact judgment & insight - Labs CBC & Chem 7: 12/21/20 04:40 12/21/20 04:40 Labs: Abnormal Lab Results - Last 24 Hours (Table) 12/20/20 12/21/20 12/21/20 Range/Units 08:50 04:40 04:40 Sodium 136 L (137-145) mmol/L Glucose 101 H (74-99) mg/dL Ferritin 494.0 H 417.3 H (10.0-291.0) ng/mL C-Reactive Protein 3.0 H (0.0-0.8) mg/dL Total Protein 6.2 L (6.3-8.2) g/dL Albumin 3.3 L (3.5-5.0) g/dL Assessment and Plan Assessment: Acute hypoxic restrictive failure Covid 19 pneumonia Hypertension Dyslipidemia Plan: IV REMDESIVIr Steroids Lovenox Supplemental oxygen Deep breathing exercises incentive spirometry Prone positioning Supplements Monitor observe inflammatory parameters Other recommendations pending plan of care as per clinical response of the patient Time with Patient: Greater than 30
[2020-12-21] MEDS: TEMAZEPAM 15 MG CAP PO SCH (21:34)
[2020-12-22] MEDS: LACTATED RINGERS 1,000 ML IV SCH (02:10)
[2020-12-22 06:23] LABS: Basophils % (A) 0 %; Eosinophils % (A) 0 %; HCT 34.7 % (34.0-46.0); HGB 11.9 gm/dL (11.4-16.0); Lymphocytes # (A) 1.3 k/uL (1.0-4.8); Lymphocytes % (A) 18 %; MCHC 34.4 g/dL (31.0-37.0); MCV 87.4 fL (80.0-100.0); Mean Platelet Volume 6.6; Monocytes # (A) 0.7 k/uL (0-1.0); Monocytes % (A) 9 %; Neutrophils # (A) 5.2 k/uL (1.3-7.7); Neutrophils % (A) 71 %; Platelet Count 364 k/uL (150-450); RBC 3.96 m/uL (3.80-5.40); RDW 11.8 % (11.5-15.5); WBC 7.3 k/uL (3.8-10.6)
[2020-12-22 06:36] LABS: African American GFR (CKD) >90 (>60 ml/min/1.73 sqM); Anion Gap 5 mmol/L; Blood Urea Nitrogen 17 mg/dL (7-17); Calcium 8.3 mg/dL (8.4-10.2); Carbon Dioxide 26 mmol/L (22-30); Chloride 104 mmol/L (98-107); Glucose 106 mg/dL (74-99); Non-African American GFR(CKD) 90 (>60 ml/min/1.73 sqM); Potassium 3.7 mmol/L (3.5-5.1); Sodium 135 mmol/L (137-145)
--- NOTE | 2020-12-22 07:08 | XR ---
EXAMINATION TYPE: XR chest 1V portable DATE OF EXAM: 12/22/2020 HISTORY: Shortness of breath. COMPARISON: 12/20/2020 TECHNIQUE: Single view of the chest is submitted. FINDINGS: Demonstrated are scattered senescent parenchymal change. Worsening peripheral infiltrates throughout both lung ni. The heart is stable. Hilar and mediastinal structures are within normal limits. Degenerative changes are seen of the dorsal spine. IMPRESSION: 1. Worsening peripheral infiltrates throughout both lung ni.
--- NOTE | 2020-12-22 08:28 | P.PN ---
Subjective Progress Note Date: 12/22/20 Principal diagnosis: Covid 19 pneumonia 80-year-old female was admitted to the hospital for acute hypoxic respiratory failure secondary to covid 19 pneumonia. she has significant medical history of hypertension. Extensive diagnostic workup was performed in the emergency department revealing covid 19 pneumonia with elevated inflammatory markers, CT of the chest was performed no acute pulmonary embolus noted, appears to have a multifocal pneumonia. Due to the patient's duration of onset of symptoms of 7 days patient will receive first dose of remdesivir and IV D ecadron, and anticoagulation therapy of Lovenox. upon evaluation of the patient this a.m. patient is resting comfortably in bed, speaking full sentences, patient endorses shortness of breath with exertion and generalized fatigue. December 21, 2020 Evaluated 80-year-old female this a.m., patient resting comfortably in bed. Patient continues to receive Covid 19 cocktail, and responding well to therapy at this time. Patient denies fever, chills, shortness of breath at rest, chest pain, palpitations, abdominal pain, nausea, vomiting, or diarrhea. Patient continues to endorse exertional shortness of breath and generalized fatigue. Diagnostic testing reviewed 12/22/2020 Evaluated 80-year-old female this a.m., patient resting comfortably in bed. She continue to receive Covid 19 cocktail, and responding well to treatment plan. Patient speaking full sentences without difficulty able to ambulate within her room without exertional shortness of breath at this time. She denies fever, chills, shortness of breath at rest or exertion, chest pain, palpitations abdominal pain, nausea, vomiting or diarrhea. Diagnostic testing reviewed. Patient to receive day 3 of Remdesivir. Objective - Vital Signs Vital signs: Vital Signs Temp 98.2 F 12/22/20 03:26 Pulse 66 12/22/20 03:26 Resp 18 12/22/20 03:26 BP 125/70 12/22/20 03:26 Pulse Ox 96 12/22/20 03:26 Intake & Output 12/21/20 12/22/20 12/22/20 18:59 06:59 18:59 Intake Total 400 920 Balance 400 920 Weight 64.864 kg Intake: Intake, IV Titration 400 600 Amount Lactated Ringers 1,000 ml 150 600 @ 50 mls/hr IV .Q20H [facility] Rx#:[id number] Remdesivir 100 mg In 250 Sodium Chloride 0.9% 250 ml @ 250 mls/hr IVPB DAILY@1400 [facility] Rx#: [id number] Oral 320 Other: # Voids 3 - Constitutional General appearance: Present: cooperative - EENT Eyes: Present: EOMI, PERRLA Ears: bilateral: normal - Neck Neck: Present: normal ROM Carotids: bilateral: upstroke normal Thyroid: bilateral: normal size - Respiratory Respiratory: bilateral: CTA (Anterior lung ni), diminished (Posterior lung ni) - Cardiovascular Details: Normal sinus rhythm Heart rate: 72 Rhythm: regular Heart sounds: normal: S1, S2 - Peripheral pulses radial pulse Peripheral Pulses: bilateral: Normal dorsalis pedis Peripheral Pulses: bilateral: Normal - Gastrointestinal General gastrointestinal: Present: normal bowel sounds - Integumentary Integumentary: Present: normal turgor - Neurologic Neurologic: Present: CNII-XII intact - Musculoskeletal Musculoskeletal: Present: generalized weakness - Psychiatric Psychiatric: Present: A&O x's 3, appropriate affect, intact judgment & insight - Allied health notes Allied health notes reviewed: nursing - Labs CBC & Chem 7: 12/22/20 05:39 12/22/20 05:39 Labs: Abnormal Lab Results - Last 24 Hours (Table) 12/21/20 12/22/20 Range/Units 04:40 05:39 Sodium 135 L (137-145) mmol/L Glucose 106 H (74-99) mg/dL Calcium 8.3 L (8.4-10.2) mg/dL Ferritin 417.3 H (10.0-291.0) ng/mL C-Reactive Protein 3.0 H (0.0-0.8) mg/dL - Imaging and Cardiology Chest x-ray: report reviewed Assessment and Plan Assessment: Acute hypoxic respiratory failure secondary to coven 19 pneumonia Hypertension Hyperlipidemia Full code Plan: Acute hypoxic respiratory failure second to the 19 pneumoniaconsultation with pulmonary critical care for treatment plan and recommendations Hypertensioncontinue home medications Hyperlipidemia continue home medications Continue infusions of remdesivir the and IV push of Decadron Continue home medications Further recommendations to come based on patient's clinical condition Time with Patient: Greater than 30
[2020-12-22] MEDS: ZINC SULFATE 220 MG CAP PO SCH (09:17)
[2020-12-22] MEDS: ASCORBIC ACID 500 MG TAB PO SCH (09:18)
[2020-12-22] MEDS: DEXAMETHASONE SOD PHOSPHATE 10 MG/ML 1 ML VIAL IV SCH (09:18)
[2020-12-22] MEDS: CHOLECALCIFEROL 25 MCG (1000 IU) TABLET PO SCH (09:18)
[2020-12-22] MEDS: ENOXAPARIN 60 MG/0.6 ML SYRINGE SQ SCH ×2 (09:19→21:05)
[2020-12-22] MEDS: SODIUM CHLORIDE 0.9% 1,000 ML IV SCH (12:29)
[2020-12-22 13:39] VITALS: BMI 23.8
[2020-12-22] MEDS: REMDESIVIR 100 MG in SODIUM CHLORIDE 0.9% 250 ML IVPB SCH (14:27)
--- NOTE | 2020-12-22 14:38 | P.PN ---
Subjective Progress Note Date: 12/22/20 Principal diagnosis: Acute hypoxic restrictive failure Covid 19 pneumonia Hypertension Dyslipidemia 12/22/2020, patient seen eval examined during the rounds labs reviewed medica tions reviewed patient currently has been placed on room air, cough congestion slightly improved now, saturation is 95-97%, chest x-ray done today however revealed bilateral infiltrates slight worsening in the periphery has been noted 12/21/2020, patient is on 2 L nasal cannula breathing comfortably denies any chest pain patient will get second dose of IV REMdesivir, white cell count is down, inflammatory parameters up including high levels of ferritin C-reactive protein and LDH, pro calcitonin is normal, This is a pleasant 80-year-old nonsmoker female came into the hospital with increasing shortness of breath cough patient come into contact with covert 19 pneumonia family members, progressive shortness of breath especially on ambulation decided to come into the hospital patient oxygen saturation is 84-85% at room air improved to low 90s with supplemental oxygen, chest x-ray significan t for bilateral patchy infiltrate, CT no pulmonary embolism is seen by d-dimer elevated consistent with ongoing inflammatory response, weighted white count likely related to steroids, Objective - Vital Signs Vital signs: Vital Signs Temp 98 F 12/22/20 12:35 Pulse 70 12/22/20 12:35 Resp 13 12/22/20 12:35 BP 151/73 12/22/20 12:35 Pulse Ox 97 12/22/20 12:35 Intake & Output 12/21/20 12/22/20 12/22/20 18:59 06:59 18:59 Intake Total 400 920 Balance 400 920 Weight 64.864 kg 64.864 kg Intake: Intake, IV Titration 400 600 Amount Lactated Ringers 1,000 ml 150 600 @ 50 mls/hr IV .Q20H [facility] Rx#:[id number] Remdesivir 100 mg In 250 Sodium Chloride 0.9% 250 ml @ 250 mls/hr IVPB DAILY@1400 [facility] Rx#: [id number] Oral 320 Other: # Voids 3 - Exam - Constitutional General appearance: average body habitus, cooperative, disheveled, mild distress - EENT Eyes: EOMI, PERRLA Ears: bilateral: normal - Neck Neck: normal ROM Carotids: bilateral: upstroke normal Thyroid: bilateral: normal size - Respiratory Respiratory: bilateral: diminished - Cardiovascular Rhythm: regular Heart sounds: normal: S1, S2 - Gastrointestinal General gastrointestinal: normal bowel sounds - Neurologic Neurologic: CNII-XII intact - Musculoskeletal Musculoskeletal: gait normal, generalized weakness, strength equal bilaterally - Psychiatric Psychiatric: A&O x's 3, appropriate affect, intact judgment & insight - Labs CBC & Chem 7: 12/22/20 05:39 12/22/20 05:39 Labs: Abnormal Lab Results - Last 24 Hours (Table) 12/22/20 Range/Units 05:39 Sodium 135 L (137-145) mmol/L Glucose 106 H (74-99) mg/dL Calcium 8.3 L (8.4-10.2) mg/dL Assessment and Plan Assessment: Acute hypoxic restrictive failure Covid 19 pneumonia Hypertension Dyslipidemia Plan: IV REMDESIVIr Steroids Lovenox Supplemental oxygen Deep breathing exercises incentive spirometry Prone positioning Supplements Monitor observe inflammatory parameters Other recommendations pending plan of care as per clinical response of the patient Time with Patient: Greater than 30
[2020-12-22] MEDS ORDERED: DIPHENOX-ATROP 2.5-0.025 MG 1 EACH TAB PO STA (19:38)
[2020-12-22] MEDS: TEMAZEPAM 15 MG CAP PO SCH (21:06)
[2020-12-23] MEDS: LACTATED RINGERS 1,000 ML IV SCH ×2 (06:17→20:27)
[2020-12-23 07:06] LABS: ALT 30 U/L (4-34); AST 24 U/L (14-36); African American GFR (CKD) >90 (>60 ml/min/1.73 sqM); Albumin 2.9 g/dL (3.5-5.0); Alkaline Phosphatase 65 U/L (38-126); Anion Gap 8 mmol/L; Blood Urea Nitrogen 18 mg/dL (7-17); Calcium 8.3 mg/dL (8.4-10.2); Carbon Dioxide 25 mmol/L (22-30); Chloride 104 mmol/L (98-107); Glucose 105 mg/dL (74-99); Non-African American GFR(CKD) >90 (>60 ml/min/1.73 sqM); Potassium 4.4 mmol/L (3.5-5.1); Sodium 137 mmol/L (137-145); Total Bilirubin 0.5 mg/dL (0.2-1.3); Total Protein 5.7 g/dL (6.3-8.2)
[2020-12-23 08:05] LABS: Basophils % (A) 0 %; Eosinophils % (A) 0 %; HCT 36.5 % (34.0-46.0); HGB 12.3 gm/dL (11.4-16.0); Lymphocytes # (A) 1.6 k/uL (1.0-4.8); Lymphocytes % (A) 19 %; MCH 29.8 pg (25.0-35.0); MCHC 33.8 g/dL (31.0-37.0); MCV 88.3 fL (80.0-100.0); Mean Platelet Volume 6.8; Monocytes # (A) 0.7 k/uL (0-1.0); Monocytes % (A) 8 %; Neutrophils # (A) 6.1 k/uL (1.3-7.7); Neutrophils % (A) 71 %; Platelet Count 414 k/uL (150-450); RBC 4.14 m/uL (3.80-5.40); RDW 12.7 % (11.5-15.5); WBC 8.6 k/uL (3.8-10.6)
--- NOTE | 2020-12-23 08:19 | XR ---
EXAMINATION TYPE: XR chest 1V portable DATE OF EXAM: 12/23/2020 Comparison: 12/22/2020 Clinical History: 80-year-old female shortness of breath. Findings: Slight rightward patient rotation altered mediastinal contours. Heart upper limits of normal size. Hy perinflation. Peripheral patchy and confluent airspace opacities in the mid and lower lungs. There ma y be slight improvement at the left midlung level. Impression: COPD and continued peripheral opacities of COVID pneumonia. There may be slight improvement at the le ft midlung.
[2020-12-23] MEDS: DEXAMETHASONE SOD PHOSPHATE 10 MG/ML 1 ML VIAL IV SCH (09:06)
[2020-12-23] MEDS: CHOLECALCIFEROL 25 MCG (1000 IU) TABLET PO SCH (09:07)
[2020-12-23] MEDS: ASCORBIC ACID 500 MG TAB PO SCH (09:07)
[2020-12-23] MEDS: ENOXAPARIN 60 MG/0.6 ML SYRINGE SQ SCH ×2 (09:07→20:26)
[2020-12-23] MEDS: ZINC SULFATE 220 MG CAP PO SCH (09:12)
[2020-12-23 12:17] LABS: Anisocytosis (M) Present; Poikilocytosis (M) Present
[2020-12-23] MEDS: REMDESIVIR 100 MG in SODIUM CHLORIDE 0.9% 250 ML IVPB SCH (13:47)
--- NOTE | 2020-12-23 16:53 | P.PN ---
Subjective Progress Note Date: 12/23/20 Principal diagnosis: Covid 19 pneumonia 80-year-old female was admitted to the hospital for acute hypoxic respiratory failure secondary to covid 19 pneumonia. she has significant medical history of hypertension. Extensive diagnostic workup was performed in the emergency department revealing covid 19 pneumonia with elevated inflammatory markers, CT of the chest was performed no acute pulmonary embolus noted, appears to have a multifocal pneumonia. Due to the patient's duration of onset of symptoms of 7 days patient will receive first dose of remdesivir and IV D ecadron, and anticoagulation therapy of Lovenox. upon evaluation of the patient this a.m. patient is resting comfortably in bed, speaking full sentences, patient endorses shortness of breath with exertion and generalized fatigue. 2020 Evaluated 80-year-old female this a.m., patient resting comfortably in bed. Patient continues to receive Covid 19 cocktail, and responding well to therapy at this time. Patient denies fever, chills, shortness of breath at rest, chest pain, palpitations, abdominal pain, nausea, vomiting, or diarrhea. Patient continues to endorse exertional shortness of breath and generalized fatigue. Diagnostic testing reviewed 12/22/2020 Evaluated 80-year-old female this a.m., patient resting comfortably in bed. She continue to receive Covid 19 cocktail, and responding well to treatment plan. Patient speaking full sentences without difficulty able to ambulate within her room without exertional shortness of breath at this time. She denies fever, chills, shortness of breath at rest or exertion, chest pain, palpitations abdominal pain, nausea, vomiting or diarrhea. Diagnostic testing reviewed. Patient to receive day 3 of Remdesivir. 12/23/2020 Evaluated 80-year-old female this a.m. resting comfortably in bed she continues to tolerate Covid 19 cocktail and responding well to treatment .patient speaking in full sentences without difficulty. Patient able to maintain oxygen saturation on room air and 96%. Patient able to ambulate without drop in oxygen saturation. She denies fever, chills shortness of breath at rest or exertion, chest pain, palpitations, abdominal pain, nausea, vomiting or diarrhea. Diagnostic tests reviewed significant drop to-dimer from 1.1. Patient received day four of Remdesivir Objective - Vital Signs Vital signs: Vital Signs Temp 98.1 F 12/23/20 16:00 Pulse 69 12/23/20 16:00 Resp 15 12/23/20 16:00 BP 135/75 12/23/20 16:00 Pulse Ox 94 L 12/23/20 16:00 Intake & Output 12/22/20 12/23/20 12/23/20 18:59 06:59 18:59 Intake Total 3200 Balance 3200 Weight 64.864 kg Intake: Intake, IV Titration 2500 Amount Lactated Ringers 1,000 ml 2500 @ 50 mls/hr IV .Q20H [facility] Rx#:[id number] Oral 700 Other: Voiding Method Toilet # Voids 1 0 - Constitutional General appearance: Present: cooperative - EENT Eyes: Present: EOMI, PERRLA Ears: bilateral: normal - Neck Carotids: bilateral: upstroke normal Thyroid: bilateral: normal size - Respiratory Respiratory: bilateral: CTA (Anterior and posterior lung ni) - Cardiovascular Details: Normal sinus rhythm Heart rate: 78 Rhythm: regular Heart sounds: normal: S1, S2 - Peripheral pulses radial pulse Peripheral Pulses: bilateral: Normal dorsalis pedis Peripheral Pulses: bilateral: Normal - Gastrointestinal General gastrointestinal: Present: normal bowel sounds - Integumentary Integumentary: Present: normal - Neurologic Neurologic: Present: CNII-XII intact - Musculoskeletal Musculoskeletal: Present: gait normal - Psychiatric Psychiatric: Present: A&O x's 3, appropriate affect, intact judgment & insight - Labs CBC & Chem 7: 12/23/20 06:11 12/23/20 06:11 Labs: Abnormal Lab Results - Last 24 Hours (Table) 12/23/20 12/23/20 Range/Units 06:11 06:11 D-Dimer 1.10 H (<0.60) mg/L FEU BUN 18 H (7-17) mg/dL Glucose 105 H (74-99) mg/dL Calcium 8.3 L (8.4-10.2) mg/dL Total Protein 5.7 L (6.3-8.2) g/dL Albumin 2.9 L (3.5-5.0) g/dL Assessment and Plan Assessment: Acute hypoxic respiratory failure secondary to covid 19 pneumonia Hypertension Hyperlipidemia Full code Plan: Acute hypoxic respiratory failure second to the 19 pneumoniaconsultation with pulmonary critical care for treatment plan and recommendations Hypertensioncontinue home medications Hyperlipidemia continue home medications Continue infusions of remdesivir the and IV push of Decadron Continue home medications Hopeful discharge tomorrow Time with Patient: Greater than 30
--- NOTE | 2020-12-23 18:05 | P.PN ---
Subjective Progress Note Date: 12/23/20 Principal diagnosis: Acute hypoxic restrictive failure Covid 19 pneumonia Hypertension Dyslipidemia 12/23/2020, patient seen eval examined during the rounds labs reviewed medica tions reviewed, patient will receive his last dose of IV tomorrow and subsequently was discharged recommend follow-up on outpatient basis 12/22/2020, patient seen eval examined during the rounds labs reviewed medications reviewed patient currently has been placed on room air, cough congestion slightly improved now, saturation is 95-97%, chest x-ray done today however revealed bilateral infiltrates slight worsening in the periphery has been noted 12/21/2020, patient is on 2 L nasal cannula breathing comfortably denies any chest pain patient will get second dose of IV REMdesivir, white cell count is down, inflammatory parameters up including high levels of ferritin C-reactive protein and LDH, pro calcitonin is normal, This is a pleasant 80-year-old nonsmoker female came into the hospital with increasing shortness of breath cough patient come into contact with covert 19 pneumonia family members, progressive shortness of breath especially on ambulation decided to come into the hospital patient oxygen saturation is 84-85% at room air improved to low 90s with supplemental oxygen, chest x-ray significant for bilateral patchy infiltrate, CT no pulmonary embolism is seen by d-dimer elevated consistent with ongoing inflammatory response, weighted white count likely related to steroids, Objective - Vital Signs Vital signs: Vital Signs Temp 98.1 F 12/23/20 16:00 Pulse 69 12/23/20 16:00 Resp 15 12/23/20 16:00 BP 135/75 12/23/20 16:00 Pulse Ox 94 L 12/23/20 16:00 Intake & Output 12/22/20 12/23/20 12/23/20 18:59 06:59 18:59 Intake Total 3200 Balance 3200 Weight 64.864 kg Intake: Intake, IV Titration 2500 Amount Lactated Ringers 1,000 ml 2500 @ 50 mls/hr IV .Q20H [facility] Rx#:[id number] Oral 700 Other: Voiding Method Toilet # Voids 1 0 - Exam - Constitutional General appearance: average body habitus, cooperative, disheveled, mild distress - EENT Eyes: EOMI, PERRLA Ears: bilateral: normal - Neck Neck: normal ROM Carotids: bilateral: upstroke normal Thyroid: bilateral: normal size - Respiratory Respiratory: bilateral: diminished - Cardiovascular Rhythm: regular Heart sounds: normal: S1, S2 - Gastrointestinal General gastrointestinal: normal bowel sounds - Neurologic Neurologic: CNII-XII intact - Musculoskeletal Musculoskeletal: gait normal, generalized weakness, strength equal bilaterally - Psychiatric Psychiatric: A&O x's 3, appropriate affect, intact judgment & insight - Labs CBC & Chem 7: 12/23/20 06:11 12/23/20 06:11 Labs: Abnormal Lab Results - Last 24 Hours (Table) 12/23/20 12/23/20 Range/Units 06:11 06:11 D-Dimer 1.10 H (<0.60) mg/L FEU BUN 18 H (7-17) mg/dL Glucose 105 H (74-99) mg/dL Calcium 8.3 L (8.4-10.2) mg/dL Total Protein 5.7 L (6.3-8.2) g/dL Albumin 2.9 L (3.5-5.0) g/dL Assessment and Plan Assessment: Acute hypoxic restrictive failure Covid 19 pneumonia Hypertension Dyslipidemia Plan: IV REMDESIVIr Steroids Lovenox Supplemental oxygen Deep breathing exercises incentive spirometry Prone positioning Supplements Monitor observe inflammatory parameters Other recommendations pending plan of care as per clinical response of the patient
[2020-12-23] MEDS: TEMAZEPAM 15 MG CAP PO SCH (20:27)
[2020-12-24] MEDS: DEXAMETHASONE SOD PHOSPHATE 10 MG/ML 1 ML VIAL IV SCH (09:54)
[2020-12-24] MEDS: CHOLECALCIFEROL 25 MCG (1000 IU) TABLET PO SCH (09:54)
[2020-12-24] MEDS: ASCORBIC ACID 500 MG TAB PO SCH (09:54)
[2020-12-24] MEDS: ENOXAPARIN 60 MG/0.6 ML SYRINGE SQ SCH ×2 (10:26→21:25)
[2020-12-24] MEDS: ZINC SULFATE 220 MG CAP PO SCH (10:27)
[2020-12-24 10:36] LABS: Basophils % (A) 0 %; Eosinophils % (A) 0 %; HCT 40.1 % (34.0-46.0); HGB 13.5 gm/dL (11.4-16.0); Lymphocytes # (A) 1.7 k/uL (1.0-4.8); Lymphocytes % (A) 17 %; MCH 29.5 pg (25.0-35.0); MCHC 33.6 g/dL (31.0-37.0); MCV 87.8 fL (80.0-100.0); Mean Platelet Volume 6.7; Monocytes # (A) 0.6 k/uL (0-1.0); Monocytes % (A) 6 %; Neutrophils # (A) 7.5 k/uL (1.3-7.7); Neutrophils % (A) 76 %; Platelet Count 501 k/uL (150-450); RBC 4.57 m/uL (3.80-5.40); RDW 12.5 % (11.5-15.5)
[2020-12-24 10:53] LABS: ALT 31 U/L (4-34); AST 24 U/L (14-36); African American GFR (CKD) >90 (>60 ml/min/1.73 sqM); Albumin 3.2 g/dL (3.5-5.0); Alkaline Phosphatase 67 U/L (38-126); Anion Gap 8 mmol/L; Blood Urea Nitrogen 18 mg/dL (7-17); Calcium 8.5 mg/dL (8.4-10.2); Carbon Dioxide 26 mmol/L (22-30); Chloride 101 mmol/L (98-107); Glucose 176 mg/dL (74-99); Non-African American GFR(CKD) >90 (>60 ml/min/1.73 sqM); Potassium 3.3 mmol/L (3.5-5.1); Sodium 135 mmol/L (137-145); Total Bilirubin 0.6 mg/dL (0.2-1.3); Total Protein 6.1 g/dL (6.3-8.2)
[2020-12-24] MEDS ORDERED: POTASSIUM CHLORIDE ER 20 MEQ TAB.ER PO STA (11:40)
[2020-12-24] MEDS: REMDESIVIR 100 MG in SODIUM CHLORIDE 0.9% 250 ML IVPB SCH (14:01)
--- NOTE | 2020-12-24 14:07 | PN ---
PROGRESS NOTE DATE OF SERVICE: 12/24/2020 INTERVAL HISTORY: I am covering for Dr. Singer. This is a 80-year-old woman who was admitted with acute bilateral COVID-19 pneumonia with acute hypoxic respiratory failure is being closely monitored at this time. Pulmonary is also following the patient closely. Patient is receiving remdesivir. The patient is also on steroids as well as zinc sulfate also and Lovenox as well. The patient also complains of chest discomfort at this time. PAST MEDICAL HISTORY: Reviewed. REVIEW OF SYSTEMS: CARDIOVASCULAR: As mentioned earlier. RESPIRATORY: As mentioned earlier. GI: As mentioned earlier. : No dysuria. NERVOUS SYSTEM: No numbness or weakness. CURRENT MEDICATIONS: Reviewed and include Tylenol, vitamin C, vitamin D3, Decadron, Lovenox. Doses reviewed. PHYSICAL EXAM: GENERAL: Patient is alert and oriented times three. VITAL SIGNS: Pulse 67, blood pressure 137/77, respirations 16, temperature 97.9, pulse ox 92% on room air. HEENT: Conjunctivae normal. Oral mucosa moist. NECK: No jugular venous distention. No carotid bruits. No lymph node enlargement. RESPIRATORY: Breath sounds diminished at the bases. No rhonchi, no crackles. HEART: S1 and S2, muffled. ABDOMEN: Soft, no tenderness. EXTREMITIES: No edema, no swelling. NERVOUS: No focal deficits. LABS: Reviewed include platelets are 501 and sodium is 132, potassium 3.3. ASSESSMENT: 1. Acute COVID-19 bilateral interstitial pneumonia with acute hypoxic respiratory failure on remdesivir. 2. Chest discomfort for evaluation. 3. Hypertension. 4. Hyperlipidemia. 5. Hyponatremia. 6. Hypokalemia. 7. History of liver disease. 8. History of degenerative joint disease. 9. History hepatitis A. 10.History of UTIs. 11.FULL CODE. RECOMMENDATIONS AND DISCUSSION: In this 80-year-old woman who presented with multiple medical issues, we will monitor the patient closely. Continue the current management, continue incentive spirometry. Continue with remdesivir. Continue dexamethasone. Continue Lovenox. I would also recommend troponin and continue to monitor. Further recommendations to follow. Home medications will be reconciled and will closely follow with Pulmonary. MMODL / IJN: [id number] /
--- NOTE | 2020-12-24 14:14 | US ---
EXAMINATION TYPE: US venous doppler duplex LE BI DATE OF EXAM: 12/24/2020 1:56 PM COMPARISON: NONE CLINICAL HISTORY: dvt. COVID SIDE PERFORMED: Bilateral TECHNIQUE: The lower extremity deep venous system is examined utilizing real time linear array sonog rebecca with graded compression, doppler sonography and color-flow sonography. VESSELS IMAGED: Common Femoral Vein Deep Femoral Vein Greater Saphenous Vein * Femoral Vein Popliteal Vein Small Saphenous Vein * Proximal Calf Veins (* superficial vessels) Right Leg: No evidence of DVT Left Leg: no evidence of DVT IMPRESSION: No evidence of bilateral lower extremity DVT.
--- NOTE | 2020-12-24 14:44 | P.PN ---
Subjective Progress Note Date: 12/24/20 Principal diagnosis: Acute hypoxic restrictive failure Covid 19 pneumonia Hypertension Dyslipidemia 12/24/2020, patient seen eval examined during the rounds labs reviewed medica tions reviewed restricted status remains stable patient on room air, patient is undergoing duplex ultrasound of the lower extremity rule out DVT, last does of REM doesn't wear his been given, patient likely will be discharge in next 24 hours in case if duplex ultrasound is negative, she remains on the Lovenox 60 mg every 12 hourly and continuation of her home medications 12/23/2020, patient seen eval examined during the rounds labs reviewed medications reviewed, patient will receive his last dose of IV tomorrow and subsequently was discharged recommend follow-up on outpatient basis 12/22/2020, patient seen eval examined during the rounds labs reviewed medications reviewed patient currently has been placed on room air, cough congestion slightly improved now, saturation is 95-97%, chest x-ray done today however revealed bilateral infiltrates slight worsening in the periphery has been noted 12/21/2020, patient is on 2 L nasal cannula breathing comfortably denies any chest pain patient will get second dose of IV REMdesivir, white cell count is down, inflammatory parameters up including high levels of ferritin C-reactive protein and LDH, pro calcitonin is normal, This is a pleasant 80-year-old nonsmoker female came into the hospital with increasing shortness of breath cough patient come into contact with covert 19 pneumonia family members, progressive shortness of breath especially on ambulation decided to come into the hospital patient oxygen saturation is 84-85% at room air improved to low 90s with supplemental oxygen, chest x-ray significant for bilateral patchy infiltrate, CT no pulmonary embolism is seen by d-dimer elevated consistent with ongoing inflammatory response, weighted white count likely related to steroids, Objective - Vital Signs Vital signs: Vital Signs Temp 96.7 F L 12/24/20 09:54 Pulse 86 12/24/20 09:54 Resp 18 12/24/20 09:54 BP 166/72 12/24/20 09:54 Pulse Ox 96 12/24/20 09:54 Intake & Output 12/23/20 12/24/20 12/24/20 18:59 06:59 18:59 Intake Total 1300 Balance 1300 Intake: Intake, IV Titration 350 Amount Remdesivir 100 mg In 250 Sodium Chloride 0.9% 250 ml @ 250 mls/hr IVPB DAILY@1400 [facility] Rx#: [id number] Sodium Chloride 0.9% 1, 100 000 ml @ 20 mls/hr IV . Q24H [facility] Rx#:[id number] Oral 950 Other: Voiding Method Toilet # Voids 5 1 - Exam - Constitutional General appearance: average body habitus, cooperative, disheveled, mild distress - EENT Eyes: EOMI, PERRLA Ears: bilateral: normal - Neck Neck: normal ROM Carotids: bilateral: upstroke normal Thyroid: bilateral: normal size - Respiratory Respiratory: bilateral: diminished - Cardiovascular Rhythm: regular Heart sounds: normal: S1, S2 - Gastrointestinal General gastrointestinal: normal bowel sounds - Neurologic Neurologic: CNII-XII intact - Musculoskeletal Musculoskeletal: gait normal, generalized weakness, strength equal bilaterally - Psychiatric Psychiatric: A&O x's 3, appropriate affect, intact judgment & insight - Labs CBC & Chem 7: 12/24/20 10:14 12/24/20 10:14 Labs: Abnormal Lab Results - Last 24 Hours (Table) 12/24/20 12/24/20 Range/Units 10:14 10:14 Plt Count 501 H (150-450) k/uL Sodium 135 L (137-145) mmol/L Potassium 3.3 L (3.5-5.1) mmol/L BUN 18 H (7-17) mg/dL Glucose 176 H (74-99) mg/dL Total Protein 6.1 L (6.3-8.2) g/dL Albumin 3.2 L (3.5-5.0) g/dL Assessment and Plan Assessment: Acute hypoxic restrictive failure Covid 19 pneumonia Hypertension Dyslipidemia Plan: IV REMDESIVIr Steroids Lovenox Supplemental oxygen Deep breathing exercises incentive spirometry Prone positioning Supplements Monitor observe inflammatory parameters Other recommendations pending plan of care as per clinical response of the patient Time with Patient: Greater than 30
[2020-12-24] MEDS: LACTATED RINGERS 1,000 ML IV SCH (16:22)
[2020-12-24] MEDS: TEMAZEPAM 15 MG CAP PO SCH (21:25)
[2020-12-24] MEDS: ATORVASTATIN 20 MG TAB PO SCH (21:25)
[2020-12-25 06:58] LABS: Basophils % (A) 0 %; Eosinophils # (A) 0.2 k/uL (0-0.7); Eosinophils % (A) 2 %; HCT 38.5 % (34.0-46.0); HGB 13.1 gm/dL (11.4-16.0); Lymphocytes # (A) 1.7 k/uL (1.0-4.8); Lymphocytes % (A) 18 %; MCH 30.1 pg (25.0-35.0); MCHC 33.9 g/dL (31.0-37.0); MCV 88.7 fL (80.0-100.0); Mean Platelet Volume 6.6; Monocytes # (A) 0.7 k/uL (0-1.0); Monocytes % (A) 8 %; Neutrophils # (A) 6.4 k/uL (1.3-7.7); Neutrophils % (A) 71 %; Platelet Count 426 k/uL (150-450); RBC 4.34 m/uL (3.80-5.40); RDW 12.8 % (11.5-15.5); WBC 9.1 k/uL (3.8-10.6)
[2020-12-25 07:37] LABS: African American GFR (CKD) >90 (>60 ml/min/1.73 sqM); Anion Gap 7 mmol/L; Blood Urea Nitrogen 16 mg/dL (7-17); Calcium 8.1 mg/dL (8.4-10.2); Carbon Dioxide 23 mmol/L (22-30); Chloride 103 mmol/L (98-107); Glucose 91 mg/dL (74-99); Non-African American GFR(CKD) >90 (>60 ml/min/1.73 sqM); Sodium 133 mmol/L (137-145)
[2020-12-25] MEDS: ZINC SULFATE 220 MG CAP PO SCH (08:34)
[2020-12-25] MEDS: METOPROLOL TARTRATE 25 MG TAB PO SCH (08:34)
[2020-12-25] MEDS: CHOLECALCIFEROL 25 MCG (1000 IU) TABLET PO SCH (08:34)
[2020-12-25] MEDS: lisinopriL 20 MG TAB PO SCH (08:34)
[2020-12-25] MEDS: ASPIRIN 81 MG PO SCH (08:34)
[2020-12-25] MEDS: ASCORBIC ACID 500 MG TAB PO SCH (08:34)
[2020-12-25] MEDS: DEXAMETHASONE SOD PHOSPHATE 10 MG/ML 1 ML VIAL IV SCH (08:34)
[2020-12-25] MEDS: ENOXAPARIN 60 MG/0.6 ML SYRINGE SQ SCH ×2 (08:34→22:51)
[2020-12-25] MEDS: amLODIPine 5 MG TAB PO SCH (08:34)
[2020-12-25] MEDS ORDERED: NON FORMULARY DRUG (Amlodipine Besylate/Benazepril [Lotrel 5-20 Mg] 1 EACH Capsule) PO SCH (09:00)
[2020-12-25] MEDS: LACTATED RINGERS 1,000 ML IV SCH (09:18)
--- NOTE | 2020-12-25 14:11 | P.PN ---
Subjective Progress Note Date: 12/25/20 Principal diagnosis: Acute hypoxic restrictive failure Covid 19 pneumonia Hypertension Dyslipidemia 12/25/2020, patient seen eval reexamined has finished IV remedies or therapy doing well denies any cough or sputum production remains on room air ambulating in the room, duplex ultrasound lower extremities negative for DVT 12/24/2020, patient seen eval examined during the rounds labs reviewed medications reviewed restricted status remains stable patient on room air, patient is undergoing duplex ultrasound of the lower extremity rule out DVT, last does of REM doesn't wear his been given, patient likely will be discharge in next 24 hours in case if duplex ultrasound is negative, she remains on the Lovenox 60 mg every 12 hourly and continuation of her home medications 12/23/2020, patient seen eval examined during the rounds labs reviewed medications reviewed, patient will receive his last dose of IV tomorrow and subsequently was discharged recommend follow-up on outpatient basis 12/22/2020, patient seen eval examined during the rounds labs reviewed medications reviewed patient currently has been placed on room air, cough congestion slightly improved now, saturation is 95-97%, chest x-ray done today however revealed bilateral infiltrates slight worsening in the periphery has been noted 12/21/2020, patient is on 2 L nasal cannula breathing comfortably denies any chest pain patient will get second dose of IV REMdesivir, white cell count is down, inflammatory parameters up including high levels of ferritin C-reactive protein and LDH, pro calcitonin is normal, This is a pleasant 80-year-old nonsmoker female came into the hospital with increasing shortness of breath cough patient come into contact with covert 19 pneumonia family members, progressive shortness of breath especially on ambulation decided to come into the hospital patient oxygen saturation is 84-85% at room air improved to low 90s with supplemental oxygen, chest x-ray significant for bilateral patchy infiltrate, CT no pulmonary embolism is seen by d-dimer elevated consistent with ongoing inflammatory response, weighted white count likely related to steroids, Objective - Vital Signs Vital signs: Vital Signs Temp 97.9 F 12/25/20 08:00 Pulse 67 12/25/20 08:00 Resp 16 12/25/20 08:00 BP 129/80 12/25/20 08:00 Pulse Ox 96 12/25/20 08:00 Intake & Output 12/24/20 12/25/20 12/25/20 18:59 06:59 18:59 Intake Total 200 Balance 200 Intake: Oral 200 Other: Voiding Method Toilet Toilet # Voids 1 3 - Exam - Constitutional General appearance: average body habitus, cooperative, disheveled, mild distress - EENT Eyes: EOMI, PERRLA Ears: bilateral: normal - Neck Neck: normal ROM Carotids: bilateral: upstroke normal Thyroid: bilateral: normal size - Respiratory Respiratory: bilateral: diminished - Cardiovascular Rhythm: regular Heart sounds: normal: S1, S2 - Gastrointestinal General gastrointestinal: normal bowel sounds - Neurologic Neurologic: CNII-XII intact - Musculoskeletal Musculoskeletal: gait normal, generalized weakness, strength equal bilaterally - Psychiatric Psychiatric: A&O x's 3, appropriate affect, intact judgment & insight - Labs CBC & Chem 7: 12/25/20 06:17 12/25/20 06:17 Labs: Abnormal Lab Results - Last 24 Hours (Table) 12/25/20 Range/Units 06:17 Sodium 133 L (137-145) mmol/L Creatinine 0.50 L (0.52-1.04) mg/dL Calcium 8.1 L (8.4-10.2) mg/dL Assessment and Plan Assessment: Acute hypoxic restrictive failure Covid 19 pneumonia Hypertension Dyslipidemia Plan: Status post IV REMDESIVIr Steroids, patient can continue dose of oral Decadron at home Lovenox, can be switched to aspirin as outpatient Monitor and observe patient off of Supplemental oxygen Deep breathing exercises incentive spirometry Prone positioning Supplements Monitor observe inflammatory parameters Agree with discharge planning Other recommendations pending plan of care as per clinical response of the patient Time with Patient: Greater than 30
--- NOTE | 2020-12-25 14:32 | PN ---
PROGRESS NOTE DATE OF SERVICE: 12/25/2020 I am covering for Dr. Singer. This 80-year-old woman was admitted with acute COVID-19 bilaterally pneumonia, acute hypoxic respiratory failure also had some chest discomfort. Patient complains of tiredness and weakness also. The patient is elevated D-dimer and ultrasound of the leg showed no evidence of any DVT. The patient did have a CTA of chest which showed no evidence of pulmonary embolism. PAST MEDICAL HISTORY: Reviewed. REVIEW OF SYSTEMS: CARDIOVASCULAR: As mentioned earlier. RESPIRATORY: As mentioned earlier. GI: No nausea, vomiting or diarrhea. NERVOUS SYSTEM: No numbness, weakness. CURRENT MEDICATIONS: Reviewed include Tylenol, Norvasc, vitamin C, aspirin, Lipitor, vitamin D3, Decadron, Lovenox, Restoril. Doses reviewed. PHYSICAL EXAM: Patient is alert, oriented x2. Pulse is 67, blood pressure 110/80, respiration 16, temperature 98.2, pulse ox 98% on room air. HEENT: Conjunctivae normal. Oral mucosa moist. NECK: No jugular venous distention. No lymph node enlargement. CARDIOVASCULAR: S1, S2, muffled. No S3, no S4, RESPIRATORY: Diminished breath sounds at the bases. A few scattered rhonchi and crackles. ABDOMEN: Soft, nontender. LEGS: No edema, no swelling. NERVOUS SYSTEM: No focal deficits LABS: At this time show CBC within normal. Sodium 130, potassium 4. ASSESSMENT: 1. Acute COVID-19 bilateral interstitial pneumonia with acute hypoxic respiratory failure on Remdesivir. 2. Chest discomfort for evaluation, rule out coronary artery disease. 3. Hypertension. 4. Hyperlipidemia. 5. Hypokalemia. 6. History of liver disease. 7. History of degenerative joint disease. 8. History of hepatitis C. 9. History UTIs. 10.FULL CODE. RECOMMENDATIONS AND DISCUSSION: I recommend to continue current management and symptomatic treatment. Otherwise, at this time we will continue to monitor, closely follow. The D-dimer is elevated. The troponins are negative and the EKG showed some ST-T changes. I would recommend a 2D echo with Doppler and as well as cardiology consultation also to complete the workup. Further recommendations to follow. MMODL / IJN: [id number] /
[2020-12-25] MEDS: ATORVASTATIN 20 MG TAB PO SCH (21:42)
[2020-12-25] MEDS: TEMAZEPAM 15 MG CAP PO SCH (21:42)
[2020-12-26] MEDS: LACTATED RINGERS 1,000 ML IV SCH (05:01)
[2020-12-26 05:28] VITALS: RESP 18
[2020-12-26 06:39] LABS: African American GFR (CKD) >90 (>60 ml/min/1.73 sqM); Anion Gap 7 mmol/L; Blood Urea Nitrogen 19 mg/dL (7-17); Calcium 8.5 mg/dL (8.4-10.2); Carbon Dioxide 25 mmol/L (22-30); Chloride 102 mmol/L (98-107); Glucose 123 mg/dL (74-99); Non-African American GFR(CKD) >90 (>60 ml/min/1.73 sqM); Potassium 4.7 mmol/L (3.5-5.1); Sodium 134 mmol/L (137-145)
[2020-12-26 07:10] LABS: Basophils % (A) 0 %; Eosinophils % (A) 0 %; HCT 40.1 % (34.0-46.0); HGB 13.2 gm/dL (11.4-16.0); Lymphocytes # (A) 1.7 k/uL (1.0-4.8); Lymphocytes % (A) 14 %; MCH 29.6 pg (25.0-35.0); MCV 89.5 fL (80.0-100.0); Mean Platelet Volume 6.9; Monocytes # (A) 0.6 k/uL (0-1.0); Monocytes % (A) 5 %; Neutrophils # (A) 9.4 k/uL (1.3-7.7); Neutrophils % (A) 79 %; Platelet Count 443 k/uL (150-450); RBC 4.47 m/uL (3.80-5.40); RDW 12.8 % (11.5-15.5); WBC 11.8 k/uL (3.8-10.6)
[2020-12-26] MEDS: DEXAMETHASONE SOD PHOSPHATE 10 MG/ML 1 ML VIAL IV SCH ×2 (08:12→10:00)
[2020-12-26] MEDS: lisinopriL 20 MG TAB PO SCH (08:12)
[2020-12-26] MEDS: amLODIPine 5 MG TAB PO SCH (08:13)
[2020-12-26] MEDS: METOPROLOL TARTRATE 25 MG TAB PO SCH (08:13)
[2020-12-26] MEDS: ASPIRIN 81 MG PO SCH (08:13)
[2020-12-26] MEDS: ENOXAPARIN 60 MG/0.6 ML SYRINGE SQ SCH (08:13)
[2020-12-26] MEDS: ZINC SULFATE 220 MG CAP PO SCH (08:13)
[2020-12-26] MEDS: CHOLECALCIFEROL 25 MCG (1000 IU) TABLET PO SCH (08:13)
[2020-12-26] MEDS: ASCORBIC ACID 500 MG TAB PO SCH (08:13)
[2020-12-26] MEDS ORDERED: dexAMETHasone 2 MG TAB PO SCH (12:15)
--- NOTE | 2020-12-26 13:00 | ECHOF ---
Referral Reason:chest pain MEASUREMENTS -------- HEIGHT: 165.1 cm WEIGHT: 64.9 kg BP: 114/76 RVIDd: 3.8 cm (< 3.3) IVSd: 0.9 cm (0.6 - 1.1) LVIDd: 3.6 cm (3.9 - 5.3) LVPWd: 1.0 cm (0.6 - 1.1) IVSs: 1.1 cm LVIDs: 2.5 cm LVPWs: 1.2 cm LAESV Index (A-L): 14.77 ml/m Ao Diam: 3.1 cm (2.0 - 3.7) AV Cusp: 1.9 cm (1.5 - 2.6) LA Diam: 3.4 cm (2.7 - 3.8) MV EXCURSION: 13.117 mm (> 18.000) MV EF SLOPE: 150 mm/s (70 - 150) EPSS: 0.3 cm MV E Collins: 0.53 m/s MV DecT: 134 ms MV A Collins: 0.89 m/s MV E/A Ratio: 0.59 RAP: 5.00 mmHg RVSP: 33.10 mmHg FINDINGS -------- Sinus rhythm. This was a technically adequate study. The left ventricular size is normal. Left ventricular wall thickness is normal. Overall left vent ricular systolic function is normal with, an EF between 55 - 60 %. The diastolic filling pattern is normal for the age of the patient 12.55. The right ventricle is mild to moderately enlarged. Normal LA size by volume 22+/-6 ml/m2. The right atrium is mildly enlarged. Interatrial and interventricular septum intact. There is no evidence of aortic regurgitation. There is no evidence of aortic stenosis. There is trace mitral regurgitation. [id number] tricuspid regurgitation present. There is no evidence of pulmonary hypertension. There is no pulmonic regurgitation present. The aortic root size is normal. Normal inferior vena cava with normal inspiratory collapse consistent with estimated right atrial pre ssure of 5 mmHg. There is no pericardial effusion. CONCLUSIONS -------- 1. The left ventricular size is normal. 2. Left ventricular wall thickness is normal. 3. Overall left ventricular systolic function is normal with, an EF between 55 - 60 %. 4. The diastolic filling pattern is normal for the age of the patient 12.55 5. The right ventricle is mild to moderately enlarged. 6. The right atrium is mildly enlarged. 7. There is trace mitral regurgitation. 8. [id number] tricuspid regurgitation present. CHEMICAL LABORATORY SCIENTIST: Georgina Vitale RDCS
--- NOTE | 2020-12-26 13:28 | P.CRDCN ---
History of Present Illness Consult date: 12/26/20 History of present illness: CHIEF COMPLAINT: Chest pain HISTORY OF PRESENT ILLNESS: This is a 80-year-old female with a past medical history significant for hypertension and hyperlipidemia. Patient follows in the office with Dr. Carlton. We have been asked to see the patient in consultation for chest pain. Patient is admitted to the hospital secondary to Covid 19. Patient had an episode of chest discomfort yesterday and cardiology was consulted for further evaluation. Patient believes this was stress related and also worsened by her Covid infection. She currently denies chest pain or pressure. Echocardiogram completed revealing ejection fraction 55-60%, right ventricle mild to moderately enlarged, trace mitral regurgitation, and mild to moderate tricuspid regurgitation. DIAGNOSTICS: EKG reveals sinus mechanism with no signs of acute ischemia CTA negative for pulmonary embolism Chest xray COPD and continued peripheral opacities of Covid pneumonia. Laboratory data: WBC 11.8. Hemoglobin 13.2. Platelet count 443. Sodium 134. Potassium 4.7. BUN 19. Creatinine 0.53. Troponin negative 2. Current home cardiac medications include amlodipine/benazepril 5/20mg daily, metoprolol tartrate 25 mg daily, Lipitor 20 mg daily, aspirin 81 mg daily REVIEW OF SYSTEMS: Thorough review of systems not completed secondary to limited evaluation/examination and due to Covid19 PHYSICAL EXAM: Thorough physical exam not completed secondary to limited evaluation/examination and due to Covid19 ASSESSMENT: Covid 19 Acute hypoxic respiratory failure Chest pain, troponins negative, no evidence of acute coronary syndrome Hypertension Hyperlipidemia PLAN: An acute coronary event has been ruled out Continue home cardiac medications Patient may be discharged home today from a cardiac standpoint. She is to [facility] outpatient with Dr. Carlton. Patient will require outpatient stress test. Nurse practitioner note has been reviewed by physician. Signing provider agrees with the documented findings, assessment, and plan of care. Past Medical History Past Medical History: Chest Pain / Angina, Hyperlipidemia, Hypertension, Liver Disease, Osteoarthritis (OA) Additional Past Medical History / Comment(s): Pt tested covid + 12/17/20 at [facility] on [address] Other hx: Hepatitis A, UTIs, urine stress incontinence, arthritis bilateral hands/hips, palpitations. History of Any Multi-Drug Resistant Organisms: None Reported Past Surgical History: Orthopedic Surgery Additional Past Surgical History / Comment(s): D&Cs, L great toe-needle removed, L shoulder arthroscopy. Past Anesthesia/Blood Transfusion Reactions: No Reported Reaction Additional Past Anesthesia/Blood Transfusion Reaction / Comment(s): Pt received blood in 1964 without reaction. Smoking Status: Never smoker - Past Family History Father Family Medical History: Diabetes Mellitus Mother Family Medical History: Osteoarthritis (OA) Medications and Allergies Home Medications Medication Instructions Recorded Confirmed Type Dexamethasone [Decadron] 6 mg PO DAILY #7 tablet 12/17/20 12/20/20 Rx Aspirin EC [Ecotrin Low Dose] 81 mg PO DAILY 12/20/20 12/20/20 History Atorvastatin Calcium [Lipitor] 20 mg PO HS 12/20/20 12/20/20 History Cholecalciferol [Vitamin D3 (25 50 mcg PO DAILY@1200 12/20/20 12/20/20 History Mcg = 1000 Iu)] Metoprolol Tartrate [Lopressor] 25 mg PO DAILY 12/20/20 12/20/20 History amLODIPine BESYLATE/BENAZEPRIL 1 cap PO DAILY 12/20/20 12/20/20 History [Lotrel 5-20 MG] Acetaminophen Tab [Tylenol] 650 mg PO Q4HR PRN tab 12/26/20 Rx Ascorbic Acid [Vitamin C] 500 mg PO DAILY 30 Days #30 tab 12/26/20 Rx Dexamethasone [Decadron] 6 mg PO DAILY 4 Days #4 tablet 12/26/20 Rx Zinc Sulfate [Orazinc] 220 mg PO DAILY 30 Days #30 cap 12/26/20 Rx Allergies Allergy/AdvReac Type Severity Reaction Status Date / Time azithromycin Allergy Rash/Hives Verified 12/20/20 10:30 [From Zithromax Z-Scott] propoxyphene [From Darvon] AdvReac Nausea & Verified 12/20/20 10:30 Vomiting & Diarrhea Physical Exam Vitals: Vital Signs Temp Pulse Resp BP Pulse Ox 12/26/20 10:00 97.9 F 62 18 114/76 94 L 12/26/20 05:27 97.9 F 63 18 114/72 97 12/26/20 02:08 97.8 F 61 16 108/64 96 12/25/20 20:00 98.2 F 66 18 131/72 94 L 12/25/20 17:50 98.1 F 63 16 127/75 95 12/25/20 14:00 97.9 F 79 16 104/67 96 Intake and Output 12/25/20 12/26/20 12/26/20 22:59 06:59 14:59 Intake Total 200 Balance 200 Intake: Oral 200 Other: Voiding Method Toilet # Voids 2 Results 12/26/20 05:45 12/26/20 05:45 CBC 12/26/20 Range/Units 05:45 WBC 11.8 H (3.8-10.6) k/uL RBC 4.47 (3.80-5.40) m/uL Hgb 13.2 (11.4-16.0) gm/dL Hct 40.1 (34.0-46.0) % Plt Count 443 (150-450) k/uL Comprehensive Metabolic Panel 12/26/20 Range/Units 05:45 Sodium 134 L (137-145) mmol/L Potassium 4.7 (3.5-5.1) mmol/L Chloride 102 (98-107) mmol/L Carbon Dioxide 25 (22-30) mmol/L BUN 19 H (7-17) mg/dL Creatinine 0.53 (0.52-1.04) mg/dL Glucose 123 H (74-99) mg/dL Calcium 8.5 (8.4-10.2) mg/dL Current Medications Generic Name Dose Route Start Last Admin Trade Name Freq PRN Reason Stop Dose Admin Acetaminophen 650 mg 12/20/20 10:04 Acetaminophen Tab 325 Mg Tab PO Q4HR PRN Fever>101 Amlodipine Besylate 5 mg 12/25/20 09:00 12/26/20 08:13 Amlodipine 5 Mg Tab PO 5 mg DAILY ARVIND Administration Ascorbic Acid 500 mg 12/20/20 10:30 12/26/20 08:13 Ascorbic Acid 500 Mg Tab PO 500 mg DAILY ARVIND Administration Aspirin 81 mg 12/25/20 09:00 12/26/20 08:13 Aspirin 81 Mg PO 81 mg DAILY ARVIND Administration Atorvastatin Calcium 20 mg 12/24/20 21:00 12/25/20 21:42 Atorvastatin 20 Mg Tab PO 20 mg HS ARVIND Administration Cholecalciferol 50 mcg 12/20/20 10:45 12/26/20 08:13 Cholecalciferol 25 Mcg (1000 Iu) Tablet PO 50 mcg DAILY ARVIND Administration Dexamethasone 6 mg 12/26/20 12:15 12/26/20 12:47 Dexamethasone 2 Mg Tab PO 6 mg DAILY ARVIND Administration Enoxaparin Sodium 60 mg 12/20/20 21:00 12/26/20 08:13 Enoxaparin 60 Mg/0.6 Ml Syringe SQ 60 mg Q12H ARVIND Administration Lactated Ringer's 1,000 mls @ 50 mls/hr 12/21/20 06:45 12/26/20 05:01 Lactated Ringers IV Not Given .Q20H ARVIND Lisinopril 20 mg 12/25/20 09:00 12/26/20 08:12 Lisinopril 20 Mg Tab PO 20 mg DAILY ARVIND Administration Metoprolol Tartrate 25 mg 12/25/20 09:00 12/26/20 08:13 Metoprolol Tartrate 25 Mg Tab PO 25 mg DAILY ARVIND Administration Naloxone HCl 0.2 mg 12/20/20 10:57 Naloxone 0.4 Mg/Ml 1 Ml Vial IV Q2M PRN Opioid Reversal Temazepam 15 mg 12/21/20 21:00 12/25/20 21:42 Temazepam 15 Mg Cap PO 15 mg HS ARVIND Administration Zinc Sulfate 220 mg 12/20/20 10:45 12/26/20 08:13 Zinc Sulfate 220 Mg Cap PO 220 mg DAILY ARVIND Administration Intake and Output 12/25/20 12/26/20 12/26/20 22:59 06:59 14:59 Intake Total 200 Balance 200 Intake: Oral 200 Other: Voiding Method Toilet # Voids 2 12/26/20 05:45 12/26/20 05:45
[2020-12-26 13:55] VITALS: BP 107/63; PULSE 83; TEMP 97.8
--- NOTE | 2020-12-26 15:25 | P.DS ---
Providers Date of admission: 12/20/20 10:57 Expected date of discharge: 12/26/20 Attending physician: Ozzy Singer Consults: 12/20/20 09:18 Consult Physician Routine Consulting Provider: Nilesh Celestin Consult Reason/Comments: covid 19 Do you want consulting provider notified?: Yes 12/25/20 13:44 Consult Physician Routine Consulting Provider: Zeke Forbes Consult Reason/Comments: chest discomfort Do you want consulting provider notified?: Yes Primary care physician: Ozzy Singer Hospital Course: Final Diagnosis Acute Covid 19 bilateral interstitial pneumonia with acute hypoxic respiratory failure Chest discomfort, ruled out coronary artery disease Hypertension Hyperlipidemia Hypokalemia history of liver disease History of degenerative joint disease History of hepatitis C History of urinary tract infections Full code Discharge disposition Patient is being discharged in a stable condition with guarded prognosis to home. Patient will follow-up with Dr. Singer in the outpatient setting upon discharge. Patient is to also follow-up with cardiology in the next few weeks for outpatient stress testing. Total time taken is greater than 35 minutes. Hospital course This is a 80-year-old female who was recently admitted with acute Covid 19 bilateral pneumonia, acute hypoxic respiratory failure and was being closely monitored. She was continued on dexamethasone along with vitamin and zinc supplements and pulmonary DrJason Celestin following. A will continue on dexamethasone 6 mg daily for the next 4 days to complete the course along with continuing vitam in and zinc supplements. Patient underwent 2-D echo and serial troponins which were negative and echo showing an EF of 55-60% with overall left ventricular systolic function being normal with a trace of mitral regurgitation and mild to moderate tricuspid regurgitation present. Patient was seen and evaluated by cardiology and will follow-up in the outpatient setting for outpatient stress test. Patient denies any chest pain at this time and states she is breathing adequately and not requiring any oxygen. Patient encouraged to continue with incentive spirometer at least 10 times every hour while awake. Patient instructed to continue to isolate for an additional week and encouraged fluids and rest and monitor for any temp or worsening shortness of breath. Currently no reports of chest pain, worsening shortness of breath, or palpitations. Patient is afebrile. No reports of nausea or vomiting and patient is tolerating diet. Patient will be discharged home today. On exam vital signs are stable. Cardio S1, S2 are muffled. Respiratory system shows diminished breath sounds at the bases with no wheezing or rhonchi noted. Abdomen is soft and obese, and nontender. Nervous system shows diffuse weakness. Please refer to medication reconciliation sheet for a list of medications. Patient Condition at Discharge: Stable Plan - Discharge Summary Discharge Rx Participant: No New Discharge Prescriptions: New Acetaminophen Tab [Tylenol] 650 mg PO Q4HR PRN tab PRN Reason: Fever>101 Ascorbic Acid [Vitamin C] 500 mg PO DAILY 30 Days #30 tab Dexamethasone [Decadron] 6 mg PO DAILY 4 Days #4 tablet Zinc Sulfate [Orazinc] 220 mg PO DAILY 30 Days #30 cap Continue Metoprolol Tartrate [Lopressor] 25 mg PO DAILY Dexamethasone [Decadron] 6 mg PO DAILY #7 tablet amLODIPine BESYLATE/BENAZEPRIL [Lotrel 5-20 MG] 1 cap PO DAILY Cholecalciferol [Vitamin D3 (25 Mcg = 1000 Iu)] 50 mcg PO DAILY@1200 Atorvastatin Calcium [Lipitor] 20 mg PO HS Aspirin EC [Ecotrin Low Dose] 81 mg PO DAILY Discharge Medication List Dexamethasone [Decadron] 6 mg PO DAILY #7 tablet 12/17/20 [Rx] Aspirin EC [Ecotrin Low Dose] 81 mg PO DAILY 12/20/20 [History] Atorvastatin Calcium [Lipitor] 20 mg PO HS 12/20/20 [History] Cholecalciferol [Vitamin D3 (25 Mcg = 1000 Iu)] 50 mcg PO DAILY@1200 12/20/20 [History] Metoprolol Tartrate [Lopressor] 25 mg PO DAILY 12/20/20 [History] amLODIPine BESYLATE/BENAZEPRIL [Lotrel 5-20 MG] 1 cap PO DAILY 12/20/20 [History] Acetaminophen Tab [Tylenol] 650 mg PO Q4HR PRN tab 12/26/20 [Rx] Ascorbic Acid [Vitamin C] 500 mg PO DAILY 30 Days #30 tab 12/26/20 [Rx] Dexamethasone [Decadron] 6 mg PO DAILY 4 Days #4 tablet 12/26/20 [Rx] Zinc Sulfate [Orazinc] 220 mg PO DAILY 30 Days #30 cap 12/26/20 [Rx] Follow up Appointment(s)/Referral(s): Ozzy Singer MD [Primary Care Provider] - 12/29/20 1:30 pm (This will be telehealth) Tonja Carlton MD [STAFF PHYSICIAN] - 01/25/21 9:00 am Activity/Diet/Wound Care/Special Instructions: Activity Limited until follow-up Follow-up with primary care provider upon discharge Follow up with cardiology outpatient Continue current diet Continue with dexamethasone for the next 4 days to complete the course Continue with vitamin and zinc supplements daily Discharge Disposition: HOME SELF-CARE
== END 2020-12-26 15:01 | disposition home or self-care (01) | DRG 177 ==
LOC: EC 08:20 → 4SSUR 10:57 → 1SOBS 12-21 14:32 → 4SSUR 12-24 22:41
PROVIDERS: ADMIT Family Medicine; ATTEND Family Medicine
PROC: XW033E5 Introduction of Remdesivir Anti-infective into Peripheral Vein, Percutaneous Approach, New Technology Group 5 (ICD-10-PCS; principal; 2020-12-20)
DX: U07.1 COVID-19 (principal); J96.01 Acute respiratory failure with hypoxia; J12.82 Pneumonia due to coronavirus disease 2019; E87.2 Acidosis; J44.0 Chronic obstructive pulmonary disease with (acute) lower respiratory infection; E87.1 Hypo-osmolality and hyponatremia; I10 Essential (primary) hypertension; Z79.82 Long term (current) use of aspirin; Z88.1 Allergy status to other antibiotic agents; E78.5 Hyperlipidemia, unspecified; Z83.3 Family history of diabetes mellitus; E87.6 Hypokalemia; Z87.440 Personal history of urinary (tract) infections; B18.2 Chronic viral hepatitis C; M19.041 Primary osteoarthritis, right hand; M19.042 Primary osteoarthritis, left hand; T38.0X5A Adverse effect of glucocorticoids and synthetic analogues, initial encounter; D72.829 Elevated white blood cell count, unspecified
CPT/HCPCS: 36415; 36600; 71045; 71275; 80048; 80053; 82550; 82728; 82805; 83615; 83735; 83880; 84145; 84484; 85025; 85379; 85384; 85610; 85730; 86140; 93005; 93306; 93970; 99285

== ENCOUNTER 2021-01-31 13:58 | Emergency (ER) | payer MEDICARE, BC ==
--- NOTE | 2021-01-31 14:50 | ED ---
General Adult HPI - General Chief complaint: Shortness of Breath Stated complaint: SOB Time Seen by Provider: 01/31/21 14:00 Source: patient, RN notes reviewed, old records reviewed Mode of arrival: ambulatory Limitations: no limitations - History of Present Illness Initial comments: This is a 80-year-old female presents to the emergency department complaining of difficulty breathing. Patient states she was here about a month ago with COVID pneumonia. Patient states since that time she's had shortness of breath. Patient denies any fever chills or cough per patient denies any chest pain. Patient states occasionally when she exerts herself she feels as though her heart is eating harder but no chest pain. Patient states exertion definitely makes urine shortness of breath worse. Patient denies any abdominal pain patient denies nausea vomiting diarrhea. Patient denies lightheadedness or dizziness. Patient denies any leg swelling or calf tenderness. - Related Data Home Medications Medication Instructions Recorded Confirmed Aspirin EC [Ecotrin Low Dose] 81 mg PO DAILY 12/20/20 01/31/21 Atorvastatin Calcium [Lipitor] 20 mg PO HS 12/20/20 01/31/21 Cholecalciferol [Vitamin D3 (25 50 mcg PO DAILY@1200 12/20/20 01/31/21 Mcg = 1000 Iu)] Metoprolol Tartrate [Lopressor] 25 mg PO DAILY 12/20/20 01/31/21 amLODIPine BESYLATE/BENAZEPRIL 1 cap PO DAILY 12/20/20 01/31/21 [Lotrel 5-20 MG] Ibuprofen/Diphenhydramine Cit 1 tab PO HS PRN 01/31/21 01/31/21 [Motrin Pm Caplet] Zolpidem [Ambien] 5 mg PO HS PRN 01/31/21 01/31/21 Previous Rx's Medication Instructions Recorded Acetaminophen Tab [Tylenol] 650 mg PO Q4HR PRN tab 12/26/20 Ascorbic Acid [Vitamin C] 500 mg PO DAILY 30 Days #30 tab 12/26/20 Allergies Allergy/AdvReac Type Severity Reaction Status Date / Time azithromycin Allergy Rash/Hives Verified 01/31/21 15:43 [From Zithromax Z-Scott] propoxyphene [From Darvon] AdvReac Nausea & Verified 01/31/21 15:43 Vomiting & Diarrhea Review of Systems ROS Statement: Those systems with pertinent positive or pertinent negative responses have been documented in the HPI. ROS Other: All systems not noted in ROS Statement are negative. Past Medical History Past Medical History: Chest Pain / Angina, Hyperlipidemia, Hypertension, Liver Disease, Osteoarthritis (OA), Pneumonia Additional Past Medical History / Comment(s): Pt tested covid + 12/17/20 at [facility] on [address] Other hx: Hepatitis A, UTIs, urine stress incontinence, arthritis bilateral hands/hips, palpitations. History of Any Multi-Drug Resistant Organisms: None Reported Past Surgical History: Orthopedic Surgery Additional Past Surgical History / Comment(s): D&Cs, L great toe-needle removed, L shoulder arthroscopy. Past Anesthesia/Blood Transfusion Reactions: No Reported Reaction Additional Past Anesthesia/Blood Transfusion Reaction / Comment(s): Pt received blood in 1964 without reaction. Past Psychological History: No Psychological Hx Reported Smoking Status: Never smoker Past Alcohol Use History: None Reported Past Drug Use History: None Reported - Past Family History Father Family Medical History: Diabetes Mellitus Mother Family Medical History: Osteoarthritis (OA) General Exam - General Exam Comments Initial Comments: GENERAL: Patient is well-developed and well-nourished. Patient is nontoxic and well- hydrated and is in mild distress. ENT: Neck is soft and supple. No significant lymphadenopathy is noted. Oropharynx is clear. Moist mucous membranes. Neck has full range of motion without el iciting any pain. EYES: The sclera were anicteric and conjunctiva were pink and moist. Extraocular movements were intact and pupils were equal round and reactive to light. Eyelids were unremarkable. PULMONARY: Unlabored respirations. Good breath sounds bilaterally. Patient has crackles in the right base. CARDIOVASCULAR: There is a regular rate and rhythm without any murmurs gallops or rubs. ABDOMEN: Soft and nontender with normal bowel sounds. No palpable organomegaly was noted. There is no palpable pulsatile mass. SKIN: Skin is clear with no lesions or rashes and otherwise unremarkable. NEUROLOGIC: Patient is alert and oriented x3. Cranial nerves II through XII are grossly i ntact. Motor and sensory are also intact. Normal speech, volume and content. Symmetrical smile. MUSCULOSKELETAL: Normal extremities with adequate strength and full range of motion. No lower extremity swelling or edema. No calf tenderness. LYMPHATICS: No significant lymphadenopathy is noted PSYCHIATRIC: Normal psychiatric evaluation. Limitations: no limitations Course Vital Signs 01/31/21 01/31/21 01/31/21 14:05 14:47 15:08 Temperature 97.7 F Pulse Rate 99 Respiratory 22 18 18 Rate Blood Pressure 129/83 140/79 O2 Sat by Pulse 96 98 Oximetry Medical Decision Making - Medical Decision Making EKG shows sinus rhythm with occasional PVC at 91 bpm AR interval is 148 QRSs 86 QT interval 366 QTC is 450. Patient's EKG shows no ST segment elevation or depression. CT of the chest showed no pulmonary illicit but did show signs of COVID pneumonia or the effects occult pneumonia. - Lab Data Result diagrams: 01/31/21 14:57 01/31/21 14:57 Lab Results 01/31/21 01/31/21 01/31/21 Range/Units 14:57 14:57 14:57 WBC 10.9 H (3.8-10.6) k/uL RBC 4.41 (3.80-5.40) m/uL Hgb 13.6 (11.4-16.0) gm/dL Hct 38.8 (34.0-46.0) % MCV 87.9 (80.0-100.0) fL MCH 30.7 (25.0-35.0) pg MCHC 34.9 (31.0-37.0) g/dL RDW 13.4 (11.5-15.5) % Plt Count 303 (150-450) k/uL MPV 7.0 Neutrophils % 63 % Lymphocytes % 26 % Monocytes % 7 % Eosinophils % 2 % Basophils % 1 % Neutrophils # 6.9 (1.3-7.7) k/uL Lymphocytes # 2.8 (1.0-4.8) k/uL Monocytes # 0.8 (0-1.0) k/uL Eosinophils # 0.3 (0-0.7) k/uL Basophils # 0.1 (0-0.2) k/uL PT 10.2 (9.0-12.0) sec INR 0.9 (<1.2) APTT 22.6 (22.0-30.0) sec D-Dimer 1.40 H (<0.60) mg/L FEU Sodium 140 (137-145) mmol/L Potassium 3.8 (3.5-5.1) mmol/L Chloride 106 (98-107) mmol/L Carbon Dioxide 24 (22-30) mmol/L Anion Gap 10 mmol/L BUN 12 (7-17) mg/dL Creatinine 0.50 L (0.52-1.04) mg/dL Est GFR (CKD-EPI)AfAm >90 (>60 ml/min/1.73 sqM) Est GFR (CKD-EPI)NonAf >90 (>60 ml/min/1.73 sqM) Glucose 120 H (74-99) mg/dL Plasma Lactic Acid Manfred (0.7-2.0) mmol/L Calcium 9.6 (8.4-10.2) mg/dL Magnesium 1.8 (1.6-2.3) mg/dL Total Bilirubin 0.5 (0.2-1.3) mg/dL AST 32 (14-36) U/L ALT 22 (4-34) U/L Alkaline Phosphatase 97 (38-126) U/L Troponin I (0.000-0.034) ng/mL NT-Pro-B Natriuret Pep pg/mL Total Protein 7.5 (6.3-8.2) g/dL Albumin 4.4 (3.5-5.0) g/dL 01/31/21 01/31/21 01/31/21 Range/Units 14:57 14:57 14:57 WBC (3.8-10.6) k/uL RBC (3.80-5.40) m/uL Hgb (11.4-16.0) gm/dL Hct (34.0-46.0) % MCV (80.0-100.0) fL MCH (25.0-35.0) pg MCHC (31.0-37.0) g/dL RDW (11.5-15.5) % Plt Count (150-450) k/uL MPV Neutrophils % % Lymphocytes % % Monocytes % % Eosinophils % % Basophils % % Neutrophils # (1.3-7.7) k/uL Lymphocytes # (1.0-4.8) k/uL Monocytes # (0-1.0) k/uL Eosinophils # (0-0.7) k/uL Basophils # (0-0.2) k/uL PT (9.0-12.0) sec INR (<1.2) APTT (22.0-30.0) sec D-Dimer (<0.60) mg/L FEU Sodium (137-145) mmol/L Potassium (3.5-5.1) mmol/L Chloride (98-107) mmol/L Carbon Dioxide (22-30) mmol/L Anion Gap mmol/L BUN (7-17) mg/dL Creatinine (0.52-1.04) mg/dL Est GFR (CKD-EPI)AfAm (>60 ml/min/1.73 sqM) Est GFR (CKD-EPI)NonAf (>60 ml/min/1.73 sqM) Glucose (74-99) mg/dL Plasma Lactic Acid Manrfed 1.4 (0.7-2.0) mmol/L Calcium (8.4-10.2) mg/dL Magnesium (1.6-2.3) mg/dL Total Bilirubin (0.2-1.3) mg/dL AST (14-36) U/L ALT (4-34) U/L Alkaline Phosphatase (38-126) U/L Troponin I <0.012 (0.000-0.034) ng/mL NT-Pro-B Natriuret Pep 175 pg/mL Total Protein (6.3-8.2) g/dL Albumin (3.5-5.0) g/dL Disposition Clinical Impression: Pneumonia due to COVID-19 virus Disposition: HOME SELF-CARE Instructions (If sedation given, give patient instructions): Coronavirus Disease 2019 (COVID-19) Is patient prescribed a controlled substance at d/c from ED?: No Referrals: Ozzy Singer MD [Primary Care Provider] - 1-2 days Time of Disposition: 17:41
[2021-01-31 14:54] VITALS: RESP 18
[2021-01-31 15:06] LABS: Basophils # (A) 0.1 k/uL (0-0.2); Basophils % (A) 1 %; Eosinophils # (A) 0.3 k/uL (0-0.7); Eosinophils % (A) 2 %; HCT 38.8 % (34.0-46.0); HGB 13.6 gm/dL (11.4-16.0); Lymphocytes # (A) 2.8 k/uL (1.0-4.8); Lymphocytes % (A) 26 %; MCH 30.7 pg (25.0-35.0); MCHC 34.9 g/dL (31.0-37.0); MCV 87.9 fL (80.0-100.0); Monocytes # (A) 0.8 k/uL (0-1.0); Monocytes % (A) 7 %; Neutrophils # (A) 6.9 k/uL (1.3-7.7); Neutrophils % (A) 63 %; Platelet Count 303 k/uL (150-450); RBC 4.41 m/uL (3.80-5.40); RDW 13.4 % (11.5-15.5); WBC 10.9 k/uL (3.8-10.6)
[2021-01-31 15:16] LABS: ALT 22 U/L (4-34); AST 32 U/L (14-36); African American GFR (CKD) >90 (>60 ml/min/1.73 sqM); Albumin 4.4 g/dL (3.5-5.0); Alkaline Phosphatase 97 U/L (38-126); Anion Gap 10 mmol/L; Blood Urea Nitrogen 12 mg/dL (7-17); Calcium 9.6 mg/dL (8.4-10.2); Carbon Dioxide 24 mmol/L (22-30); Chloride 106 mmol/L (98-107); Glucose 120 mg/dL (74-99); Magnesium 1.8 mg/dL (1.6-2.3); Non-African American GFR(CKD) >90 (>60 ml/min/1.73 sqM); Potassium 3.8 mmol/L (3.5-5.1); Sodium 140 mmol/L (137-145); Total Bilirubin 0.5 mg/dL (0.2-1.3); Total Protein 7.5 g/dL (6.3-8.2)
[2021-01-31 15:21] LABS: INR 0.9 (<1.2); Partial Thromboplastin Time 22.6 sec (22.0-30.0); Prothrombin Time 10.2 sec (9.0-12.0)
--- NOTE | 2021-01-31 15:36 | XR ---
EXAMINATION TYPE: XR chest 2V DATE OF EXAM: 01/31/2021 COMPARISON: Chest x-ray 12/23/2020, chest CT 12/20/2020 HISTORY: Difficulty breathing, shortness of breath TECHNIQUE: Frontal and lateral views of the chest are obtained. FINDINGS: Patchy densities present in the bilateral lungs, interstitium remains increased. There is no evident pneumothorax. Biapical pleural thickening is again seen. Cardiac mediastinal silhouette sh ows a similar appearance, aorta is dense. IMPRESSION: Interstitial lung disease. Findings may represent residuum of Covid pneumonia
[2021-01-31 15:37] LABS: D-Dimer 1.4 mg/L FEU (<0.60)
--- NOTE | 2021-01-31 16:27 | CT ---
EXAMINATION TYPE: CT chest angio for PE DATE OF EXAM: 01/31/2021 COMPARISON: CT 12/20/2020 HISTORY: Shortness of breath. CT DLP: 234.5 mGycm Automated exposure control for dose reduction was used. CONTRAST: CT Chest for pulmonary embolism performed with with IV Contrast, patient injected with 100 mL of Isov ue 370. FINDINGS: LUNGS: The lungs are similar in appearance, there are interstitial changes as on prior exam. Bandlike areas of increased attenuation, areas of peripheral airspace disease again noted and have become kayleigh ewhat more confluent at the lung bases, there are areas of probable honeycombing. There is no pleur al effusion or pneumothorax seen. The tracheobronchial tree is patent. MEDIASTINUM: There is satisfactory enhancement of the pulmonary artery and its branches, there is no CT evidence for pulmonary embolism. There are no greater than 1 cm hilar or mediastinal lymph nodes. No pericardial effusion is seen. There is prominence of pulmonary artery. AORTA: No additional significant abnormality is seen. OTHER: No additional significant abnormality is seen. IMPRESSION: No evident pulmonary embolism. Findings likely due to Covid pneumonia. Correlate for pulmonary artery hypertension.
[2021-01-31 17:58] VITALS: BP 129/73; PULSE 82; TEMP 98.3
== END 2021-01-31 17:58 | disposition home or self-care (01) ==
LOC: EC 13:58
DX: U07.1 COVID-19 (principal); J12.82 Pneumonia due to coronavirus disease 2019; E78.5 Hyperlipidemia, unspecified; I10 Essential (primary) hypertension; J84.9 Interstitial pulmonary disease, unspecified; M19.041 Primary osteoarthritis, right hand; M19.042 Primary osteoarthritis, left hand; Z79.1 Long term (current) use of non-steroidal anti-inflammatories (NSAID); Z79.82 Long term (current) use of aspirin; Z83.3 Family history of diabetes mellitus
CPT/HCPCS: 36415; 93005; 85379; 83880; 80053; 83605; 83735; 84484; 85025; 85610; 85730; 71046; 71275; 99285; Q9967

== ENCOUNTER → 2021-03-23 | Outpatient (CLI) | payer MEDICARE, BC | END | disposition home or self-care (01) | DX: R91.8 Other nonspecific abnormal finding of lung field (principal) ==

== ENCOUNTER → 2024-12-18 | Outpatient (CLI) | payer MEDICARE, BC ==
[2024-12-18 09:12] LABS: Partial Thromboplastin Time 23.5 sec (22.0-30.0); Prothrombin Time 11.1 sec (10.0-12.5)
[2024-12-18 16:32] LABS: Basophils # (A) 0.02 X 10*3/uL (0.00-0.10); Basophils % (A) 0.2 %; Eosinophils # (A) 0.19 X 10*3/uL (0.04-0.35); Eosinophils % (A) 2.4 %; HCT 39.4 % (37.2-46.3); HGB 12.8 g/dL (12.0-15.0); Lymphocytes # (A) 3.01 X 10*3/uL (0.90-5.00); Lymphocytes % (A) 37.3 %; MCH 30.5 pg (27.0-32.0); MCHC 32.5 g/dL (32.0-37.0); MCV 93.8 FL (80.0-97.0); Mean Platelet Volume 10.3 FL (9.5-12.2); Monocytes # (A) 0.57 X 10*3/uL (0.20-1.00); Monocytes % (A) 7.1 %; NRBC Per 100 WBC 0 X 10*3/uL (0.00-0.01); Neutrophils # (A) 4.25 X 10*3/uL (1.80-7.70); Neutrophils % (A) 52.8 %; Platelet Count 233 X 10*3/uL (140-440); RDW 11.9 % (11.5-14.5); WBC 8.06 X 10*3/uL (4.50-10.00)
[2024-12-18 16:44] LABS: ALT 25 U/L (8-44); AST 25 U/L (13-35); Albumin 4.3 g/dL (3.8-4.9); Albumin/Globulin Ratio 1.72 Ratio (1.60-3.17); Alkaline Phosphatase 77 U/L (41-126); BUN/Creat Ratio 27.38 Ratio (12.00-20.00); Blood Urea Nitrogen 21.9 mg/dL (9.0-27.0); Calcium 9.4 mg/dL (8.7-10.3); Chloride 106 mmol/L (96-109); Globulin 2.5 g/dL (1.6-3.3); Glucose 117 mg/dL (70-110); Potassium 4.3 mmol/L (3.5-5.5); Sodium 142 mmol/L (135-145); Total Bilirubin 0.6 mg/dL (0.3-1.2); Total Protein 6.8 g/dL (6.2-8.2)
== END | disposition home or self-care (01) ==
LOC: LABPAT 07:50
PROVIDERS: ATTEND Orthopaedic Surgery
DX: Z01.812 Encounter for preprocedural laboratory examination (principal); Z22.322 Carrier or suspected carrier of Methicillin resistant Staphylococcus aureus; M16.11 Unilateral primary osteoarthritis, right hip; E11.9 Type 2 diabetes mellitus without complications
CPT/HCPCS: 80053; 83036; 85025; 85610; 85730; 86850; 86900; 86901; 87070

== ENCOUNTER → 2024-12-18 | Outpatient (CLI) | payer MEDICARE, BC ==
[2024-12-18 16:49] LABS: Chol/HDL Ratio 3.19 Ratio; LDL Cholesterol,Calculated 75.1 mg/dL (0.0-131.0)
== END | disposition home or self-care (01) ==
LOC: LABWHC1 07:55
PROVIDERS: ATTEND Family Medicine
DX: E78.5 Hyperlipidemia, unspecified (principal); R73.9 Hyperglycemia, unspecified
CPT/HCPCS: 36415; 80061; 84443